=== PATIENT | female | born 1985 | race Caucasian/White ===

== ENCOUNTER 2016-11-05 15:35 | Emergency (ER) | payer MEDICAID, OTHER ==
--- NOTE | 2016-11-05 15:44 | ER Document Report ---
ED Medical Screen (RME) - General Stated Complaint: LEFT ANKLE PAIN Time seen by provider: 15:44 Mode of Arrival: Ambulatory Information source: Patient Notes: 31 yo female stepped off the dance floor le[place] before midnight and felt left ankle give out on her. tender left medial malleouols and plantar left heel over the fascia. non tender heel squeeze, achilles intact. TRAVEL OUTSIDE OF THE [place] IN LAST 30 DAYS: No - Related Data Allergies/Adverse Reactions: No Known Allergies Allergy (Verified 06/11/15 01:58) Past Medical History Neurological Medical History: Reports: Hx Migraine Past Surgical History: Reports: Hx Breast Surgery - Cyst - Immunizations Hx Diphtheria, Pertussis, Tetanus Vaccination: No - unknown
--- NOTE | 2016-11-05 17:43 | ER Document Report ---
ED Extremity Problem, Lower - General Chief Complaint: Ankle Pain Stated Complaint: LEFT ANKLE PAIN Time seen by provider: 17:38 Mode of Arrival: Ambulatory Information source: Patient Notes: 31-year-old female presents to ED for pain in her left ankle since Sunday. She states she was walking off the dance floor Sunday and her left ankle started hurting. She states it is very tender and painful to walk on since TRAVEL OUTSIDE OF THE [place] IN LAST 30 DAYS: No - HPI Patient complains to provider of: Pain. No: Injury, Swelling Location: Ankle, Foot Occurred: Other - Sunday Where: Public place Onset/Duration: Sudden, Intermittent Quality of pain: Achy, Sharp Severity: Moderate Pain Level: 4 Context: Other - Just walking Recent injury: No Associated symptoms: Painful ambulation Exacerbated by: Movement, Walking Relieved by: Elevation, Ice, Rest - Related Data Allergies/Adverse Reactions: No Known Allergies Allergy (Verified 11/05/16 15:48) Past Medical History - General Information source: Patient - Social History Smoking Status: Current Every Day Smoker Cigarette use (# per day): Yes - 2-3 cigarettes a day Chew tobacco use (# tins/day): No Smoking Education Provided: Yes - less than 1 minute Frequency of alcohol use: Rare Drug Abuse: None Occupation: inventory Lives with: Parents Family History: DM Patient has suicidal ideation: No Patient has homicidal ideation: No - Past Medical History Cardiac Medical History: Reports: None Pulmonary Medical History: Reports: None EENT Medical History: Reports: None Neurological Medical History: Reports: Hx Migraine Endocrine Medical History: Reports: None Renal/ Medical History: Reports: None Malignancy Medical History: Reports: None GI Medical History: Reports: None Musculoskeltal Medical History: Reports None Skin Medical History: Reports None Psychiatric Medical History: Reports: None Traumatic Medical History: Reports: None Infectious Medical History: Reports: None Past Surgical History: Reports: Hx Breast Surgery - Cyst - Immunizations Hx Diphtheria, Pertussis, Tetanus Vaccination: No - unknown Review of Systems - Review of Systems Constitutional: No symptoms reported EENT: No symptoms reported Cardiovascular: No symptoms reported Respiratory: No symptoms reported Gastrointestinal: No symptoms reported Genitourinary: No symptoms reported Female Genitourinary: No symptoms reported Musculoskeletal: Other - Left ankle pain. denies: Ankle swelling Skin: No symptoms reported Hematologic/Lymphatic: No symptoms reported Neurological/Psychological: No symptoms reported -: Yes All other systems reviewed and negative Physical Exam - Vital signs Vitals: Temp Pulse Resp BP Pulse Ox 98.0 F 70 18 127/71 H 99 11/05/16 15:48 11/05/16 15:48 11/05/16 15:48 11/05/16 15:48 11/05/16 15:48 Interpretation: Normal - General General appearance: Appears well, Alert - HEENT Head: Normocephalic, Atraumatic Eyes: Normal Pupils: PERRL - Respiratory Respiratory status: No respiratory distress Chest status: Nontender Breath sounds: Normal Chest palpation: Normal - Cardiovascular Rhythm: Regular Heart sounds: Normal auscultation Murmur: No - Abdominal Inspection: Normal Distension: No distension Bowel sounds: Normal Tenderness: Nontender Organomegaly: No organomegaly - Back Back: Normal, Nontender - Extremities General upper extremity: Normal inspection, Nontender, Normal color, Normal ROM , Normal temperature General lower extremity: Normal inspection, Normal color, Normal ROM, Normal temperature, Normal weight bearing. No: Sharri's sign Ankle: Tender - Medial malleolus and left heel Foot: Tender - Plantar surface of the heel left foot - Neurological Neuro grossly intact: Yes Cognition: Normal Orientation: AAOx4 [place] Coma Scale Eye Opening: Spontaneous [place] Coma Scale Verbal: Oriented [place] Coma Scale Motor: Obeys Commands [place] Coma Scale Total: 15 Speech: Normal Motor strength normal: LUE, RUE, LLE, RLE Sensory: Normal - Psychological Associated symptoms: Normal affect, Normal mood - Skin Skin Temperature: Warm Skin Moisture: Dry Skin Color: Normal Course - Re-evaluation Re-evalutation: 11/05/16 17:52 Discussed x-ray with patient Christopher wrap applied to left ankle and patient will be discharged home to follow-up with her primary doctor - Vital Signs Vital signs: Temp Pulse Resp BP Pulse Ox 98.0 F 70 18 127/71 H 99 11/05/16 15:48 11/05/16 15:48 11/05/16 15:48 11/05/16 15:48 11/05/16 15:48 - Diagnostic Test Radiology reviewed: Image reviewed, Reports reviewed Procedures - Immobilization Left Ankle Time completed: 17:53 Immobilizer type: Christopher wrap Performed by: PCT Post-Proc Neuro Vasc Exam: Normal Alignment checked and good: Yes Discharge - Discharge Clinical Impression: Left ankle pain Qualifiers: Chronicity: acute Qualified Code(s): M25.572 - Pain in left ankle and joints of left foot Condition: Stable Disposition: HOME, SELF-CARE Additional Instructions: You were seen today for left ankle's pain with no injury. You state you were just walking off the dance floor when the pain started. CHRISTOPHER WRAP: A compression dressing (christopher wrap) has been placed. This helps hold the area still. It limits swelling and internal bleeding. The wrap should be comfortably snug -- not tight. You should feel a sense of pressure, but not severe pain under the wrap. Unless the physician tells you otherwise, you can adjust the wrap for comfort. If the wrap causes symptoms suggesting it's too tight -- uncomfortable pressure, swelling or discoloration beyond the wrap, numbness, or severe pain - - you must loosen the wrap. If these symptoms don't resolve promptly, return for re-evaluation. ICE & ELEVATION: Apply ice packs frequently against the painful area. Many different schedules are recommended, such as "20 minutes on, 20 minutes off" or "one hour ice, two hours rest." If you need to work, you may need to go longer between ice treatments. You should plan to have the area ice packed AT LEAST one- fourth of the time. The ice should be applied over the wrap, tape, or splint, or over a layer of cloth -- not directly against the skin. Some ice bags have a built-in cloth and can be put directly on the skin. Your injured part should be elevated as much as possible over the next 48 hours. Try to keep the injury above the level of the heart. Avoid use of the injured area. Elevation and rest will decrease the swelling. USE OF [id number] IBUPROFEN: Ibuprofen (Advil, Nuprin, Medipren, Motrin IB) is a medication for fever and pain control. In addition, it has anti- inflammatory effects which may be beneficial, especially in the treatment of injuries. It's best to take ibuprofen with food. Persons with ulcer disease or allergy to aspirin should notify their physician of this before taking ibuprofen. Ibuprofen can be given every four to six hours, for a total of four doses daily. Age Pain or fever dose Antiinflammatory dose 6-8 yr 200 mg (1 tab) 200 mg (1 tab) 9-11 yr 200 mg (1 tab) 200-400 mg (1-2 tab) 11-14 yr 200-400 mg (1-2 tab) 400 mg (2 tab) 15-adult 400 mg (2 tab) 600 mg (3 tab) FOLLOW-UP CARE: If you have been referred to a physician for follow-up care, call the physician s office for an appointment as you were instructed or within the next two days. If you experience worsening or a significant change in your symptoms, notify the physician immediately or return to the Emergency Department at any time for re-evaluation. Prescriptions: Ibuprofen 800 mg PO Q8HP PRN #14 tablet PRN Reason: Forms: Elevated Blood Pressure, Smoking Cessation Education, Return to Work Referrals: TYRESE BURDICK MD [Primary Care Provider] - Follow up as needed DILMA AKHTAR MD [ACTIVE STAFF] - Follow up as needed
[2016-11-05 17:55] VITALS: BP 119/72
== END 2016-11-05 17:54 | disposition home or self-care (01) ==
LOC: ER 15:35
DX: M25.572 Pain in left ankle and joints of left foot (principal); F17.210 Nicotine dependence, cigarettes, uncomplicated; Z71.6 Tobacco abuse counseling
CPT/HCPCS: 99283

== ENCOUNTER 2016-11-24 11:27 | Emergency (ER) | payer MEDICAID ==
--- NOTE | 2016-11-24 11:40 | ER Document Report ---
ED Medical Screen (RME) - General Stated Complaint: ABDOMINAL PAIN/RIB PAIN Time seen by provider: 11:38 Mode of Arrival: Ambulatory Information source: Patient Notes: 31-year-old female presents to ED for abdominal and rib pain off and on for week. States today when she coughs she feels like she needs to vomit. States she's had a cough for week and a half. She states she smokes 4 or 5 cigarettes a day. Last menstrual period 11/06/2016 I have greeted and performed a rapid initial assessment of this patient. A comprehensive ED assessment and evaluation of the patient, analysis of test results and completion of medical decision making process will be conducted by an additional ED providers. TRAVEL OUTSIDE OF THE [place] IN LAST 30 DAYS: No - Related Data Allergies/Adverse Reactions: No Known Allergies Allergy (Verified 11/24/16 11:37) Past Medical History Neurological Medical History: Reports: Hx Migraine Past Surgical History: Reports: Hx Breast Surgery - Cyst - Immunizations Hx Diphtheria, Pertussis, Tetanus Vaccination: No - unknown
[2016-11-24] MEDS ORDERED: ONDANSETRON 4 MG TAB.RAPDIS PO ONE (11:41)
[2016-11-24 12:10] LABS: ABSOLUTE EOSINOPHILS # (AUTO) 0.2 10^3/uL (0.0-0.6); ABSOLUTE LYMPHOCYTES (AUTO) 1.9 10^3/uL (0.5-4.7); ABSOLUTE MONOCYTES (AUTO) 0.7 10^3/uL (0.1-1.4); BASOPHILS % (AUTO) 0.4 % (0-2); EOSINOPHILS % (AUTO) 1.5 % (0-6); HEMATOCRIT 40.2 % (36.0-47.0); HEMOGLOBIN 12.8 g/dL (12.0-15.5); HGB HCT DIFFERENCE -1.8; LYMPHOCYTES % (AUTO) 17.7 % (13-45); MEAN CORPUSCULAR HEMOGLOBIN 26.5 pg (27.0-33.4); MEAN CORPUSCULAR HGB CONC 31.8 g/dL (32.0-36.0); MEAN CORPUSCULAR VOLUME 83 fl (80-97); MONOCYTES % (AUTO) 6.5 % (3-13); RED BLOOD COUNT 4.82 10^6/uL (3.72-5.28); RED CELL DISTRIBUTION WIDTH 14.8 % (11.5-14.0); SEGMENTED NEUTROPHILS % (AUTO) 73.9 % (42-78); WHITE BLOOD COUNT 10.9 10^3/uL (4.0-10.5)
[2016-11-24 12:29] LABS: ALANINE AMINOTRANSFERASE 29 U/L (9-52); ALBUMIN 3.8 g/dL (3.5-5.0); ALKALINE PHOSPHATASE 64 U/L (38-126); ANION GAP 11 (5-19); ASPARTATE AMINO TRANSFERASE 17 U/L (14-36); BILIRUBIN,TOTAL 0.3 mg/dL (0.2-1.3); BLOOD UREA NITROGEN 9 mg/dL (7-20); CALCIUM 9.3 mg/dL (8.4-10.2); CARBON DIOXIDE 25 mmol/L (22-30); CHLORIDE 109 mmol/L (98-107); CREATINE KINASE 43 U/L (30-135); CREATININE RESULT 0.61 mg/dL (0.52-1.25); GLUCOSE 83 mg/dL (75-110); POTASSIUM 4.5 mmol/L (3.6-5.0); SODIUM 144.8 mmol/L (137-145); TOTAL PROTEIN 6.6 g/dL (6.3-8.2)
[2016-11-24 12:45] LABS: CREATINE KINASE MB < 0.22 ng/mL (<4.55); TROPONIN I < 0.012 ng/mL
[2016-11-24 14:22] LABS: ADD ON TESTING BLD IN LAB ACKNOWLEDGE
--- NOTE | 2016-11-24 14:42 | ER Document Report ---
ED GI/ - General Chief Complaint: Abdominal Pain Stated Complaint: ABDOMINAL PAIN/RIB PAIN Mode of Arrival: Ambulatory Information source: Patient Notes: Patient presents complaining of epigastric and right upper quadrant abdominal pain off and on for the past week that worsened today. Patient denies any fever or vomiting. Patient denies any urinary symptoms. Patient does state that pain worsens after eating. Patient additionally reports mild cough for the past few days. TRAVEL OUTSIDE OF THE [place] IN LAST 30 DAYS: No - HPI Patient complains to provider of: Abdominal pain, Other - Nausea. No: Vomiting Onset: Last week Timing/Duration: Waxing and waning Quality of pain: Achy Severity at maximum: Severe Pain Level: 1 Location: Epigastric, RUQ Vaginal bleeding (Compared to normal period): None Associated symptoms: Nausea. denies: Diarrhea, Dysuria, Fever, Loss of appetite , Urinary hesitancy, Urinary frequency, Urinary retention, Urinary urgency, Vaginal discharge, Vomiting Exacerbated by: Food Relieved by: Denies Similar symptoms previously: Yes Recently seen / treated by doctor: No - Related Data Allergies/Adverse Reactions: No Known Allergies Allergy (Verified 11/24/16 11:37) Past Medical History - General Information source: Patient Last Menstrual Period: 11/06/2016 - Social History Smoking Status: Current Every Day Smoker Chew tobacco use (# tins/day): No Frequency of alcohol use: Rare Drug Abuse: None Occupation: inventory Lives with: Family Family History: DM Patient has suicidal ideation: No Patient has homicidal ideation: No Pulmonary Medical History: Reports: Other - Allergies Neurological Medical History: Reports: Hx Migraine Renal/ Medical History: Denies: Hx Peritoneal Dialysis Past Surgical History: Reports: Hx Breast Surgery - Cyst - Immunizations Hx Diphtheria, Pertussis, Tetanus Vaccination: No - unknown Review of Systems - Review of Systems Constitutional: No symptoms reported. denies: Fever, Recent illness EENT: No symptoms reported Cardiovascular: No symptoms reported. denies: Chest pain Respiratory: Cough. denies: Short of breath Gastrointestinal: Abdominal pain, Nausea. denies: Diarrhea, Vomiting, Poor appetite Genitourinary: No symptoms reported. denies: Dysuria, Flank pain Female Genitourinary: No symptoms reported Musculoskeletal: No symptoms reported. denies: Back pain Skin: No symptoms reported Hematologic/Lymphatic: No symptoms reported Neurological/Psychological: No symptoms reported. denies: Headaches Physical Exam - Vital signs Vitals: Temp Pulse Resp BP Pulse Ox 97.8 F 56 L 18 129/74 H 99 11/24/16 11:34 11/24/16 11:34 11/24/16 11:34 11/24/16 11:34 11/24/16 11:34 - General General appearance: Appears well, Alert In distress: None Notes: PHYSICAL EXAMINATION: GENERAL: Well-appearing and in no acute distress. HEAD: Atraumatic, normocephalic. EYES: sclera anicteric, conjunctiva are normal. ENT: nares patent. Moist mucous membranes. NECK: Normal range of motion, supple without lymphadenopathy LUNGS: CTAB and equal. No wheezes rales or rhonchi. HEART: Regular rate and rhythm without murmurs ABDOMEN: Soft, mild epigastric, right upper quadrant tenderness, normal bowel sounds, no guarding. EXTREMITIES: Normal range of motion, no pitting edema. No cyanosis. BACK: No midline tenderness, no step-off or deformity. No CVA tenderness NEUROLOGICAL: Cranial nerves grossly intact. Normal speech. Normal gait. PSYCH: Normal mood, normal affect. SKIN: Warm, Dry, normal turgor, no rashes or lesions noted Course - Re-evaluation Re-evalutation: 11/24/16 14:[address] Serrano regarding patient presentation and exam findings. Does recommend ultrasound imaging at this time. 11/24/16 16:56 Reviewed ultrasound report findings with Dr. Serrano, does not suspect that patient has acute cholecystitis at this time. Patient remains pain-free and has not been medicated for pain during her ER stay. Does recommend consultation with surgeon to guarantee outpatient follow-up Consulted with Dr Lehman, states that pt can be offered admission with plan to go to the OR possibly tonight or tomorrow; or patient can be offered outpatient follow-up with the clinic, having patient call the office on Sunday morning to set up an appointment time. 11/24/16 16:57 Discussed possible treatment options with patient, patient declines admission at this time, stating that it would be better for her schedule if she could follow-up on Sunday as an outpatient. Discussed worsening signs or symptoms that patient should return immediately for. Patient verbalized understanding and agrees plan of care. - Vital Signs Vital signs: Temp Pulse Resp BP Pulse Ox 97.9 F 61 20 115/71 61 L 11/24/16 17:14 11/24/16 17:14 11/24/16 17:14 11/24/16 17:14 11/24/16 17:14 - Laboratory Result Diagrams: 11/24/16 11:57 11/24/16 11:57 Laboratory results interpreted by me: 11/24/16 11/24/16 11:57 11:57 WBC 10.9 H MCH 26.5 L MCHC 31.8 L RDW 14.8 H Chloride 109 H 11/24/16 16:58 Labs- Entire Visit 11/24/16 11/24/16 11/24/16 11:57 11:57 11:57 WBC 10.9 H RBC 4.82 Hgb 12.8 Hct 40.2 MCV 83 MCH 26.5 L MCHC 31.8 L RDW 14.8 H Plt Count 279 Seg Neutrophils % 73.9 Lymphocytes % 17.7 Monocytes % 6.5 Eosinophils % 1.5 Basophils % 0.4 Absolute Neutrophils 8.0 Absolute Lymphocytes 1.9 Absolute Monocytes 0.7 Absolute Eosinophils 0.2 Absolute Basophils 0.0 Sodium 144.8 Potassium 4.5 Chloride 109 H Carbon Dioxide 25 Anion Gap 11 BUN 9 Creatinine 0.61 Est GFR ( Amer) > 60 Est GFR (Non-Af Amer) > 60 Glucose 83 Calcium 9.3 Total Bilirubin 0.3 Direct Bilirubin 0.0 AST 17 ALT 29 Alkaline Phosphatase 64 Creatine Kinase 43 CK-MB (CK-2) < 0.22 Troponin I < 0.012 Total Protein 6.6 Albumin 3.8 Lipase 11/24/16 11:57 WBC RBC Hgb Hct MCV MCH MCHC RDW Plt Count Seg Neutrophils % Lymphocytes % Monocytes % Eosinophils % Basophils % Absolute Neutrophils Absolute Lymphocytes Absolute Monocytes Absolute Eosinophils Absolute Basophils Sodium Potassium Chloride Carbon Dioxide Anion Gap BUN Creatinine Est GFR ( Amer) Est GFR (Non-Af Amer) Glucose Calcium Total Bilirubin Direct Bilirubin AST ALT Alkaline Phosphatase Creatine Kinase CK-MB (CK-2) Troponin I Total Protein Albumin Lipase 53.8 11/24/16 18:45 - Diagnostic Test Radiology reviewed: Reports reviewed Discharge - Discharge Clinical Impression: Gall bladder disease, Nausea Abdominal pain Qualifiers: Abdominal location: unspecified location Qualified Code(s): R10.9 - Unspecified abdominal pain Condition: Stable Disposition: HOME, SELF-CARE Instructions: Gallbladder Disease ([facility]), Antinausea Medication ([facility]), Low-Fat Diet ([facility]) Additional Instructions: Return immediately for any new or worsening symptoms, increased pain, fever, vomiting, yellowing of the skin or eyes or any concerning symptoms Followup with your primary care provider, call Sunday for an appointment time Follow-up with the outpatient surgical clinic, called her office on Sunday morning for an appointment time. Prescriptions: Ondansetron HCl [Zofran 4 mg Tablet] 1 - 2 tab PO Q6 PRN #15 tablet PRN Reason: Forms: Return to Work Referrals: [facility] [Provider Group] - 11/27/16 MITZI BURDICK NP [Primary Care Provider] - 11/27/16
[2016-11-24 14:45] LABS: LIPASE 53.8 U/L (23-300)
[2016-11-24 17:16] VITALS: BP 115/71
== END 2016-11-24 17:16 | disposition home or self-care (01) ==
LOC: ER 11:27
DX: K82.9 Disease of gallbladder, unspecified (principal); R10.13 Epigastric pain; R10.11 Right upper quadrant pain; R05 Cough; R11.0 Nausea; F17.200 Nicotine dependence, unspecified, uncomplicated
CPT/HCPCS: 99284; 36415; 82553; 82550; 83690; 85025; 80053; 84484; 71020; 76705; S0119

== ENCOUNTER 2016-11-27 02:39 | Observation (INO) | payer MEDICAID ==
[2016-11-27] MEDS ORDERED: MORPHINE SULFATE 10 MG/ML INJ IV ONE (03:23)
[2016-11-27] MEDS ORDERED: NORMAL SALINE 1000 ML 1,000 ML IV PRN (03:23)
[2016-11-27] MEDS ORDERED: ONDANSETRON HCL INJ/PF 4 MG/2 ML SDV IV ONE (03:23)
--- NOTE | 2016-11-27 03:34 | ER Document Report ---
ED GI/ - General Time seen by provider: 03:27 Mode of Arrival: Ambulatory Information source: Patient TRAVEL OUTSIDE OF THE [place] IN LAST 30 DAYS: No - HPI Patient complains to provider of: Abdominal pain Onset: Just prior to arrival Timing/Duration: Sudden Quality of pain: Sharp, Stabbing Severity at maximum: Moderate Severity in ED: Moderate Pain Level: 4 Location: RUQ Associated symptoms: Nausea Exacerbated by: Denies Relieved by: Denies Similar symptoms previously: Yes Recently seen / treated by doctor: Yes <KATHERINE DAILEY - Last Filed: 11/27/16 06:10> <ALANA ZEPEDA - Last Filed: 11/27/16 06:45> - General Chief Complaint: Abdominal Pain Stated Complaint: UPPER ABDOMINAL PAIN - HPI Notes: 11/27/16 03:28 Patient is a 31-year-old female presenting to the emergency room complaining of right upper quadrant pain that is sharp and stabbing in nature and woke her from sleep 2 this evening, she reports nausea associated with the pain but no fever and no vomiting, she was seen in the emergency room on 11/24 and diagnosed with gallstones, no history of any abdominal surgeries previously, her last meal was around 8:45 PM and consisted of some vegetables (KATHERINE DAILEY) - Related Data Allergies/Adverse Reactions: No Known Allergies Allergy (Verified 11/24/16 11:37) Past Medical History - General Information source: Patient - Social History Smoking Status: Current Every Day Smoker Chew tobacco use (# tins/day): No Frequency of alcohol use: Rare Drug Abuse: None Family History: DM Patient has suicidal ideation: No Patient has homicidal ideation: No Neurological Medical History: Reports: Hx Migraine Renal/ Medical History: Denies: Hx Peritoneal Dialysis Past Surgical History: Reports: Hx Breast Surgery - Cyst - Immunizations Hx Diphtheria, Pertussis, Tetanus Vaccination: No - unknown <KATHERINE DAILEY - Last Filed: 11/27/16 06:10> Review of Systems - Review of Systems Constitutional: No symptoms reported EENT: No symptoms reported Cardiovascular: No symptoms reported Respiratory: No symptoms reported Gastrointestinal: Abdominal pain, Nausea Genitourinary: No symptoms reported Female Genitourinary: No symptoms reported Musculoskeletal: No symptoms reported Skin: No symptoms reported Hematologic/Lymphatic: No symptoms reported Neurological/Psychological: No symptoms reported -: Yes All other systems reviewed and negative <KATHERINE DAILEY - Last Filed: 11/27/16 06:10> Physical Exam - Vital signs Interpretation: Normal - General General appearance: Appears well, Alert - HEENT Head: Normocephalic, Atraumatic Eyes: Normal Pupils: PERRL - Respiratory Respiratory status: No respiratory distress Chest status: Nontender Breath sounds: Normal Chest palpation: Normal - Cardiovascular Rhythm: Regular Heart sounds: Normal auscultation Murmur: No - Abdominal Inspection: Normal Distension: No distension Bowel sounds: Normal Tenderness: Tender - Right upper quadrant Organomegaly: No organomegaly - Back Back: Normal, Nontender - Extremities General upper extremity: Normal inspection, Nontender, Normal color, Normal ROM , Normal temperature General lower extremity: Normal inspection, Nontender, Normal color, Normal ROM , Normal temperature, Normal weight bearing. No: Sharri's sign - Neurological Neuro grossly intact: Yes Cognition: Normal Orientation: AAOx4 [place] Coma Scale Eye Opening: Spontaneous [place] Coma Scale Verbal: Oriented [place] Coma Scale Motor: Obeys Commands [place] Coma Scale Total: 15 Speech: Normal Motor strength normal: LUE, RUE, LLE, RLE Sensory: Normal - Psychological Associated symptoms: Normal affect, Normal mood - Skin Skin Temperature: Warm Skin Moisture: Dry Skin Color: Normal <KATHERINE DAILEY - Last Filed: 11/27/16 06:10> Course - Laboratory Result Diagrams: 11/27/16 04:00 11/27/16 04:00 - Consults Dr Gilliland Time consulted: 05:49 Consulted provider: will come to ER <KATHERINE DAILEY - Last Filed: 11/27/16 06:10> - Laboratory Result Diagrams: 11/27/16 04:00 11/27/16 04:00 <ALANA ZEPEDA - Last Filed: 11/27/16 06:45> - Re-evaluation Re-evalutation: 11/27/16 05:26 I reviewed patient's ultrasound from 3 days ago when she was seen which reveals gallstones and gallbladder wall thickening thought to be more chronic in nature , at that point in time she was evaluated by Dr. Gerber and they discussed admitting patient for surgery versus following up as an outpatient, initially patient chose to be followed up as an outpatient, however this evening she states that the pain is so bad that she would prefer to be admitted and have her gallbladder removed I placed a call to the on-call surgeon, Dr. Gilliland, who will come to the emergency room to evaluate the patient 11/27/16 06:10 Patient is awaiting evaluation by surgeon for further disposition instructions, patient was discussed with Dr. Zepeda who will ensure that patient is either admitted or discharged appropriately (KATHERINE DAILEY) 11/27/16 06:45 Surgeon at bedside will admit the patient for further observation. (ALANA ZEPEDA) - Vital Signs Vital signs: Temp Pulse Resp BP Pulse Ox 97.8 F 68 18 127/74 H 100 11/27/16 02:42 11/27/16 02:42 11/27/16 02:42 11/27/16 02:42 11/27/16 02:42 (KATHERINE DAILEY) (ALANA ZEPEDA) - Laboratory Laboratory results interpreted by me: 11/27/16 11/27/16 11/27/16 04:00 04:00 04:00 MCH 26.9 L RDW 15.2 H Chloride 114 H Carbon Dioxide 18 L Albumin 3.1 L Urine Protein 30 H Ur Leukocyte Esterase TRACE H (ALANA ZEPEDA) - Consults Dr Gilliland Reason for consultation: 11/27/16 05:49 Right upper quadrant pain, gallstones (KATHERINE DAILEY) Discharge <KATHERINE DAILEY - Last Filed: 11/27/16 06:10> - Discharge Admitting Provider: Surgicalist - [facility] Unit Admitted: Surgical Floor <ALANA ZEPEDA - Last Filed: 11/27/16 06:45> - Discharge Clinical Impression: Gall bladder disease Abdominal pain Qualifiers: Abdominal location: unspecified location Qualified Code(s): R10.9 - Unspecified abdominal pain Condition: Good Disposition: ADMITTED OBSERVATION Referrals: MITZI BURDICK LICENSED AUDIOLOGIST [Primary Care Provider] - Follow up as needed
[2016-11-27 04:19] LABS: ABSOLUTE BASOPHILS # (AUTO) 0.1 10^3/uL (0.0-0.2); ABSOLUTE EOSINOPHILS # (AUTO) 0.2 10^3/uL (0.0-0.6); ABSOLUTE LYMPHOCYTES (AUTO) 2.1 10^3/uL (0.5-4.7); ABSOLUTE MONOCYTES (AUTO) 0.8 10^3/uL (0.1-1.4); ABSOLUTE NEUT (AUTO) 6.6 10^3/uL (1.7-8.2); BASOPHILS % (AUTO) 0.6 % (0-2); EOSINOPHILS % (AUTO) 1.7 % (0-6); HEMATOCRIT 37.4 % (36.0-47.0); HEMOGLOBIN 12.1 g/dL (12.0-15.5); HGB HCT DIFFERENCE -1.1; LYMPHOCYTES % (AUTO) 21.5 % (13-45); MEAN CORPUSCULAR HEMOGLOBIN 26.9 pg (27.0-33.4); MEAN CORPUSCULAR HGB CONC 32.2 g/dL (32.0-36.0); MEAN CORPUSCULAR VOLUME 83 fl (80-97); MONOCYTES % (AUTO) 7.7 % (3-13); RED BLOOD COUNT 4.49 10^6/uL (3.72-5.28); RED CELL DISTRIBUTION WIDTH 15.2 % (11.5-14.0); SEGMENTED NEUTROPHILS % (AUTO) 68.5 % (42-78); WHITE BLOOD COUNT 9.7 10^3/uL (4.0-10.5)
[2016-11-27 04:35] LABS: ALANINE AMINOTRANSFERASE 29 U/L (9-52); ALBUMIN 3.1 g/dL (3.5-5.0); ALKALINE PHOSPHATASE 64 U/L (38-126); ANION GAP 10 (5-19); ASPARTATE AMINO TRANSFERASE 22 U/L (14-36); BILIRUBIN,TOTAL 0.3 mg/dL (0.2-1.3); BLOOD UREA NITROGEN 10 mg/dL (7-20); CALCIUM 8.9 mg/dL (8.4-10.2); CARBON DIOXIDE 18 mmol/L (22-30); CHLORIDE 114 mmol/L (98-107); CREATININE RESULT 0.61 mg/dL (0.52-1.25); GLUCOSE 103 mg/dL (75-110); LIPASE 54.1 U/L (23-300); POTASSIUM 4.7 mmol/L (3.6-5.0); SODIUM 141.5 mmol/L (137-145); TOTAL PROTEIN 6.5 g/dL (6.3-8.2)
[2016-11-27 04:52] LABS: AMORPHOUS SEDIMENT,URINE 1+ /HPF; APPEARANCE,URINE TURBID; BILIRUBIN,URINE NEGATIVE (NEGATIVE); GLUCOSE, URINE NEGATIVE (NEGATIVE); KETONES,URINE NEGATIVE (NEGATIVE); LEUKOCYTE ESTERASE,URINE TRACE (NEGATIVE); NITRITE,URINE NEGATIVE (NEGATIVE); PROTEIN,URINE 30 mg/dL (NEGATIVE); URINE SPECIFIC GRAVITY 1.015; UROBILINOGEN,URINE NEGATIVE mg/dL (<2.0)
--- NOTE | 2016-11-27 08:28 | PDOC PROGRESS REPORT ---
Subjective Progress Note for:: 11/27/16 Subjective:: Patient complaining of right upper quadrant pain reduced compared to this morning. Physical Exam Vital Signs: Temp Pulse Resp BP Pulse Ox 98.5 F 52 L 14 103/61 100 11/27/16 06:46 11/27/16 06:46 11/27/16 06:46 11/27/16 06:46 11/27/16 06:46 Intake & Output 11/26/16 11/27/16 11/28/16 06:59 06:59 06:59 Weight 104.1 kg General appearance: PRESENT: mild distress Eye exam: PRESENT: EOMI GI/Abdominal exam: PRESENT: other - Abdomen is soft, minimally tender in the right upper quadrant. No organomegaly no peritoneal signs. Assessment & Plan - Diagnosis (1) Gall bladder disease Is this a current diagnosis for this admission?: YesPlan: 1. Patient has chronic cholecystitis with cholelithiasis. She deserves interval laparoscopic, possible open cholecystectomy. The patient has been admitted to the surgical service. I have explained the plan to the patient, as well as a thorough explanation of the risks benefits and alternatives including bleeding, infection, bile duct injury and need for additional surgery. I believe the patient understands and agrees to proceed. 2. We will keep patient nothing by mouth complete her paperwork. Anticipate her being discharged home from the hospital within 24 hours.
[2016-11-27] MEDS ORDERED: ONDANSETRON HCL INJ/PF 4 MG/2 ML SDV IV PRN ×2 (08:29→10:55)
[2016-11-27] MEDS ORDERED: BUPIVACAINE HCL 0.25 % INJ/PF (2.5 MG/1 ML) 30 ML VIAL ONE (08:56)
[2016-11-27] MEDS ORDERED: LEVOFLOXACIN 750 MG/D5W RTU 750 MG/150 ML RTUPB IV ONE (09:00)
[2016-11-27] MEDS ORDERED: PROMETHAZINE HCL INJ 25 MG/1 ML VIAL IV PRN ×2 (10:55)
[2016-11-27] MEDS ORDERED: MEPERIDINE HCL/PF INJ 25 MG/1 ML DISP.SYRIN IV PRN (10:55)
[2016-11-27] MEDS ORDERED: FENTANYL CITRATE INJ/PF 100 MCG/2 ML AMPUL IV PRN ×3 (10:55)
[2016-11-27] MEDS ORDERED: MORPHINE SULFATE 10 MG/ML INJ IV PRN (10:55)
[2016-11-27] MEDS ORDERED: DIPHENHYDRAMINE HCL 50 MG/ML VIAL IV PRN (10:55)
[2016-11-27] MEDS ORDERED: OXYCODONE-ACETAMINOPHEN 5-325 MG TABLET PO PRN ×2 (10:55)
--- NOTE | 2016-11-27 12:19 | Operative Report ---
Operative Report DATE OF SURGERY: 11/27/16 PREOPERATIVE DIAGNOSIS: Acute cholecystitis and cholelithiasis POSTOPERATIVE DIAGNOSIS: Same OPERATION: Laparoscopic cholecystectomy SURGEON: RYAN FELDMAN ANESTHESIA: GA TISSUE REMOVED OR ALTERED: Gallstones, gallbladder COMPLICATIONS: None ESTIMATED BLOOD LOSS: 15 mL INTRAOPERATIVE FINDINGS: See below PROCEDURE: After obtaining informed consent, the patient was taken to the operating room. General Anesthesia was induced; the arms were extended, and the abdomen was exposed, and prepped and draped in a sterile fashion. Instrumentation was set up for laparoscopic cholecystectomy. Surgical plan and surgical timeout were conducted. A vertical incision was made above the umbilicus, and a verres needle was inserted uneventfully into the peritoneal cavity. Pneumoperitoneum was established. The verres needle was removed and a 5 mm trocar was inserted and a 5 mm flexible laparoscope was inserted. Visualization of the peritoneal cavity confirmed safe uneventful entry. Under direct visualization 3 additional 5 mm ports were established, one in the subxiphoid position and second in the subcostal position. There was marked edema and swelling of the gallbladder consistent with acute cholecystitis. Using a laparoscopic trocar, approximately 80 mL of bile was aspirated from the gallbladder. A grasper was placed on the fundus of the gallbladder and the gallbladder is elevated over the right surface of the liver; a second grasper was used to grasp the infundibulum of the gallbladder. The neck of the gallbladder and junction with the cystic duct was dissected out. There were several nodes of Calot I: There was a moderate amount of neovascularity the the area behind the cystic duct area; therefore I felt that a top down approach was appropriate. Graspers were repositioned, and the gallbladder was taken off of the liver bed from the top down using electrocautery. Eventually the gallbladder suspended solely by the cystic duct and the cystic artery. His were taken. Cystic artery was clipped twice proximally once distally and divided with scissors. The gallbladder was now suspended solely by the cystic duct. We now milked the cystic duct of any possible stones, clipped the cystic duct approximately 3 times once distally and divided with scissors. The gallbladder was now removed from the undersurface of the liver using hook cautery dissection. Graspers were repositioned and the gallbladder was removed uneventfully from the abdominal cavity through the super umbilical port site incision similarly extending the fascial by a few centimeters.. The specimen was examined, then passed off to pathology for permanent analysis. We returned to the peritoneal cavity check for bleeding, and evidence of bile leak, and there was none. We Confirmed satisfactory placement of clips on cystic duct and cystic artery were secured . At this point we felt the operation was complete. Fascial defect above the umbilicus was closed with multiple interrupted 0 [id number] Vicryl sutures. No drains were applied; The subcutaneous tissue was then anesthetized with quarter percent Marcaine Sponge and needle counts are correct. All ports removed under direct visualization pneumoperitoneum evacuated, and 5 mm port wounds closed with 3-0 Vicryl suture, benzoin and Steri-Strips. The patient was extubated, and taken to the recovery room in stable condition.
[2016-11-27] MEDS: FENTANYL CITRATE INJ/PF 100 MCG/2 ML AMPUL ONE ×2 (12:20→12:25)
[2016-11-27] MEDS ORDERED: LIDOCAINE 2% INJ-PF (20 MG/ML) 10 ML AMPUL ONE (12:50)
[2016-11-27] MEDS ORDERED: METOCLOPRAMIDE HCL INJ/PF 10 MG/2 ML SDV ONE (12:50)
[2016-11-27] MEDS ORDERED: DEXAMETHASONE SOD PHOSPHATE INJ 4 MG/1 ML VIAL ONE (12:50)
[2016-11-27] MEDS ORDERED: GLYCOPYRROLATE INJ 0.4 MG/2 ML VIAL ONE (12:50)
[2016-11-27] MEDS ORDERED: SUCCINYLCHOLINE CHLORIDE INJ 200 MG/10 ML VIAL ONE (12:50)
[2016-11-27] MEDS ORDERED: ONDANSETRON HCL INJ/PF 4 MG/2 ML SDV ONE (12:50)
[2016-11-27] MEDS ORDERED: VECURONIUM BROMIDE INJ 10 MG VIAL IV ONE (12:50)
--- NOTE | 2016-11-27 13:04 | HISTORY AND PHYSICAL E ---
History and Physical NAME: JANET LOCKETT : 1985 AGE: 31Y ADMITTED: 11/27/2016 ROOM: ED17 HISTORY OF PRESENT ILLNESS: The patient is a 31-year-old female patient coming back for the second time to the emergency room with a history of abdominal pain with nausea. The patient was here 3 days ago with gallbladder issue. She wanted to go home and follow up as an outpatient midnight tonight patient started having significant abdominal pain, could not tolerate it, and came back to the emergency room. Her last ultrasound of the gallbladder revealed gallstones with the gallbladder wall about 6 mm. Presently, patient complains of pain in the right upper quadrant area with nausea. PAST MEDICAL PROBLEMS: None. PAST SURGICAL HISTORY: Had wisdom tooth removed. There are no other medical issues. PERSONAL HISTORY: She is a smoker, but no alcohol abuse or any other issues. REVIEW OF SYSTEMS: As per examination, negative except for abdominal pain and occasional smoking. PHYSICAL EXAMINATION: GENERAL: He appears to be in some discomfort. No icterus. HEAD/NECK: No lymphadenopathy. No masses. RESPIRATORY: Both lungs are clear to auscultation. CARDIOVASCULAR: Both heart sounds regular. No murmurs or gallops. ABDOMEN: She has a soft abdomen, tender in the right upper quadrant area. No palpable masses. No palpable hernia. EXTREMITIES: Warm, well perfused. is normal. White count is also normal. Ultrasound review, which was done a few days ago, showed multiple gallstones with thickened gallbladder wall. IMPRESSION: Cholelithiasis with cholecystitis with pain. PLAN: Admit for pain management and rehydration. Based on the , possibly cholecystectomy today by on-call surgeon. If the pain gets better at this point, but I will certainly admit her and plan for a cholecystectomy because of her continued pain and return to the emergency room. DICTATING PHYSICIAN: CHASTITY HENDRIX M.D. [id number] PHY#: [id number] ID: [id number] JOB#: [id number] ACCT: [id number] cc: >
[2016-11-27] MEDS: POTASSI CL 20 MEQ/D5-1/2NS 1L 1000 ML IV PRN (18:01)
[2016-11-27] MEDS: HYDROMORPHONE HCL INJ/PF 2 MG/ML AMPULE IV PRN ×2 (18:03→22:48)
[2016-11-27] MEDS ORDERED: TOPIRAMATE 100 MG TABLET PO SCH (22:00)
[2016-11-28] MEDS: POTASSI CL 20 MEQ/D5-1/2NS 1L 1000 ML IV PRN (06:57)
[2016-11-28] MEDS ORDERED: HYDROCODONE/ACETAMINOPHEN 5-325 MG TABLET PO PRN (08:36)
[2016-11-28] MEDS ORDERED: LORATADINE 10 MG TABLET PO SCH (10:00)
[2016-11-28] MEDS ORDERED: LEVOFLOXACIN 750 MG/D5W RTU 750 MG/150 ML RTUPB IV SCH (10:00)
[2016-11-28] MEDS ORDERED: OXYCODONE-ACETAMINOPHEN 5-325 MG TABLET PO PRN (14:28)
--- NOTE | 2016-11-28 18:31 | PDOC DISCHARGE SUMMARY ---
General - Admit/Disc Date/PCP Admission Date/Primary Care Provider: 11/27/16 06:49 MITZI BURDICK NP Discharge Date: 11/28/16 - Discharge Diagnosis (1) Cholelithiasis with acute on chronic cholecystitis Is this a current diagnosis for this admission?: Yes - Additional Information Resuscitation Status: Full Code Home Medications: Fexofenadine HCl [Xenia] 180 mg PO DAILY 11/27/16 Norethindrone [Nor-Q-D] 0.35 mg PO DAILY 11/27/16 Topiramate [Topamax] 200 mg PO DAILY 11/27/16 History of Present Illness History of Present Illness: JANET LOCKETT is a 31 year old female who was admitted on 11/27/2016 with right upper quadrant pain. Exam and Imaging revealed cholecystitis. She is taken to surgery on 11/27/2016 were a laparoscopic Cholecystectomy was performed. Postoperatively the patient's diet was gradually advanced. Her pain was controlled with Percocet. She was ambulating, voiding, passing flatus and tolerating a diet. She was discharged home on 11/28/2016. Pathology report: Gallbladder, acute on chronic cholecystitis with cholelithiasis. Hospital Course Hospital Course: JANET LOCKETT is a 31 year old female who was admitted on 11/27/2016 with right upper quadrant pain. Exam and Imaging revealed cholecystitis. She is taken to surgery on 11/27/2016 were a laparoscopic Cholecystectomy was performed. Postoperatively the patient's diet was gradually advanced. Her pain was controlled with Percocet. She was ambulating, voiding, passing flatus and tolerating a diet. She was discharged home on 11/28/2016. Pathology report: Gallbladder, acute on chronic cholecystitis with cholelithiasis. Physical Exam Vital Signs: Temp Pulse Resp BP Pulse Ox 97.5 F 75 16 111/73 100 11/28/16 15:08 11/28/16 15:08 11/28/16 15:08 11/28/16 15:08 11/28/16 15:08 Intake & Output 11/27/16 11/28/16 11/29/16 06:59 06:59 06:59 Intake Total 4261 1687 Output Total 1020 Balance 3241 1687 Weight 104.1 kg 108.2 kg General appearance: PRESENT: no acute distress Head exam: PRESENT: normocephalic Respiratory exam: PRESENT: unlabored GI/Abdominal exam: PRESENT: normal bowel sounds, soft, tenderness - Appropriately tender at umbilical incision. Incisions clean dry and intact with Steri-Strips.. ABSENT: distended, guarding, rebound Neurological exam: PRESENT: alert, oriented to situation Skin exam: ABSENT: jaundice Plan Discharge Plan: Discharge home. Walk frequently. Continue deep breathing and coughing. No lifting over 10 pounds for 2 weeks. Shower daily starting tomorrow. Remove Steri-Strips in [address] while on narcotics. Take Colace/generic stool softener 200 milligrams twice a day while on stool softener; adjusted keep stool soft but avoid diarrhea; taper off as you wean off narcotics. Follow -up in surgery clinic in 10-14 days with MANINDER [place].
[2016-11-28 18:56] VITALS: BP 104/57
[2016-11-28] MEDS ORDERED: DOCUSATE SODIUM 100 MG CAPSULE PO ONE (20:00)
[2016-11-28] MEDS ORDERED: DOCUSATE SODIUM 100 MG CAPSULE PO SCH (22:00)
== END 2016-11-28 20:14 | disposition home or self-care (01) ==
LOC: ER 02:39 → UNDOADMOB 06:49 → EH 06:49 → 4N 06:49 → EH 13:08
PROC: 0FT44ZZ Resection of Gallbladder, Percutaneous Endoscopic Approach (ICD-10-PCS; principal; 2016-11-27 10:00)
DX: K80.12 Calculus of gallbladder with acute and chronic cholecystitis without obstruction (principal); F17.210 Nicotine dependence, cigarettes, uncomplicated; G43.909 Migraine, unspecified, not intractable, without status migrainosus; Z83.3 Family history of diabetes mellitus; Z79.899 Other long term (current) drug therapy
CPT/HCPCS: 99285; 96361; 96374; 96375; 36415; 87086; 83690; 84703; 85025; 80053; 81001; 88304 ×2; 47562; G0378 ×3; J1100; J3490 ×5; J3010; J2765; J2270; J1170; J3480 ×2; J0330; J2405; S0020; J7030; J1956 ×2; 790

== ENCOUNTER 2017-01-17 17:44 | Emergency (ER) | payer MEDICAID ==
[2017-01-17 17:50] VITALS: BP 123/66
--- NOTE | 2017-01-17 17:53 | ER Document Report ---
ED Medical Screen (RME) - General Stated Complaint: COUGH,CHEST TIGHTNESS Notes: 31 yo female c/o cough, chest tightness x 1week. had flu symptoms last week. no chronic illness. RR nonlabored. Sat 98% TRAVEL OUTSIDE OF THE [place] IN LAST 30 DAYS: No - Related Data Allergies/Adverse Reactions: No Known Allergies Allergy (Verified 11/27/16 06:53) Past Medical History Neurological Medical History: Reports: Hx Migraine Renal/ Medical History: Denies: Hx Peritoneal Dialysis Past Surgical History: Reports: Hx Breast Surgery - Cyst - Immunizations Hx Diphtheria, Pertussis, Tetanus Vaccination: No - unknown Physical Exam - Vital signs Vitals: Temp Pulse Resp BP Pulse Ox 97.6 F 71 18 123/66 98 01/17/17 17:49 01/17/17 17:49 01/17/17 17:49 01/17/17 17:49 01/17/17 17:49 Course - Vital Signs Vital signs: Temp Pulse Resp BP Pulse Ox 97.6 F 71 18 123/66 98 01/17/17 17:49 01/17/17 17:49 01/17/17 17:49 01/17/17 17:49 01/17/17 17:49
--- NOTE | 2017-01-17 19:21 | ER Document Report ---
ED Respiratory Problem - General Chief Complaint: Cough Stated Complaint: COUGH,CHEST TIGHTNESS Notes: The patient is a 31-year-old female, current smoker, presents with 3 weeks of dry cough, worsening over the past day. Last week she had fevers and body aches with the cough, but the fevers and body aches have resolved. She tried [id number] cough medicine without much relief. She denies chest pain at rest, leg swelling, hemoptysis, recent travel, nausea, vomiting or abdominal pain. TRAVEL OUTSIDE OF THE [place] IN LAST 30 DAYS: No - Related Data Allergies/Adverse Reactions: No Known Allergies Allergy (Verified 11/27/16 06:53) Past Medical History - General Information source: Patient - Social History Smoking Status: Current Every Day Smoker Frequency of alcohol use: Occasional Drug Abuse: None Family History: DM Patient has suicidal ideation: No Patient has homicidal ideation: No Neurological Medical History: Reports: Hx Migraine Renal/ Medical History: Denies: Hx Peritoneal Dialysis Past Surgical History: Reports: Hx Breast Surgery - Cyst - Immunizations Hx Diphtheria, Pertussis, Tetanus Vaccination: No - unknown Review of Systems - Review of Systems Notes: REVIEW OF SYSTEMS: CONSTITUTIONAL: -fevers, -chills EENT: -eye pain, -difficulty swallowing, +nasal congestion CARDIOVASCULAR:-chest pain, -syncope. RESPIRATORY: +cough, -SOB GASTROINTESTINAL: -abdominal pain, - nausea, -vomiting, -diarrhea GENITOURINARY: -dysuria, -hematuria MUSCULOSKELETAL: -back pain, -neck pain SKIN: -rash or skin lesions. HEMATOLOGIC: -easy bruising or bleeding. LYMPHATIC: -swollen, enlarged glands. NEUROLOGICAL: -altered mental status or loss of consciousness, -headache, - neurologic symptoms PSYCHIATRIC: -anxiety, -depression. ALL OTHER SYSTEMS REVIEWED AND NEGATIVE. Physical Exam - Vital signs Vitals: Temp Pulse Resp BP Pulse Ox 97.6 F 71 18 123/66 98 01/17/17 17:49 01/17/17 17:49 01/17/17 17:49 01/17/17 17:49 01/17/17 17:49 - Notes Notes: PHYSICAL EXAMINATION: GENERAL: Well-appearing, well-nourished and in no acute distress. HEAD: Atraumatic, normocephalic. EYES: Pupils equal round and reactive to light, extraocular movements intact, sclera anicteric, conjunctiva are normal. ENT: nares patent, oropharynx clear without exudates. Moist mucous membranes. NECK: Normal range of motion, supple without lymphadenopathy LUNGS: Mild end expiratory wheeze, coarse breath sounds, no respiratory distress. HEART: Regular rate and rhythm without murmurs ABDOMEN: Soft, nontender, normoactive bowel sounds. No guarding, no rebound. No masses appreciated. EXTREMITIES: Normal range of motion, no pitting or edema. No cyanosis. NEUROLOGICAL: Cranial nerves grossly intact. Normal speech, normal gait. Normal sensory, motor, and reflex exams. PSYCH: Normal mood, normal affect. SKIN: Warm, Dry, normal turgor, no rashes or lesions noted. Course - Re-evaluation Re-evalutation: Patient appears well and in no respiratory distress. Chest x-ray does not show any evidence of pneumonia. Will treat with albuterol and prednisone with smoking cessation counseling. Given return precautions and she understands. - Vital Signs Vital signs: Temp Pulse Resp BP Pulse Ox 97.6 F 71 18 123/66 98 01/17/17 17:49 01/17/17 17:49 01/17/17 17:49 01/17/17 17:49 01/17/17 17:49 - Diagnostic Test Radiology reviewed: Image reviewed, Reports reviewed Radiology results interpreted by me: CXR: NAD Discharge - Discharge Clinical Impression: Bronchitis Condition: Good Disposition: HOME, SELF-CARE Additional Instructions: BRONCHITIS: You have acute bronchitis. This disease is an infection or inflammation of the air passageways in your lungs. Symptoms usually include cough, low grade fever, shortness of breath, and wheezing. The cough usually persists for a couple of weeks. Most cases of bronchitis get better without antibiotics. We prescribe antibiotics when we believe bacteria are damaging your airways, or if there's high risk the bronchitis will worsen into pneumonia. Increase your fluid intake. A cool mist humidifier may make your lungs more comfortable. An expectorant (cough medicine that loosens phlegm) can help. If you smoke, STOP!!! Recovery from bronchitis can be somewhat slow, but you should see improvement within a day or two. Repeated episodes of bronchitis may result in lung damage -- for example, chronic bronchitis, recurrent pneumonias, or emphysema. Call the doctor if you develop increasing fever, shortness of breath, chest pain, bloody sputum, or otherwise worsen. If you have not improved at all after several days, contact the physician. BRONCHITIS WITH BRONCHOSPASM (WHEEZING): You have bronchitis with bronchospasm (wheezing). Sometimes people develop wheezing with a chest cold. This occurs either because of an underlying tendency toward asthma or because the virus itself irritates the bronchial tubes. This irritation causes cough, shortness of breath, and wheezing. Emergency treatment of bronchospasm may include adrenaline shots or bronchodilator aerosol. You may feel lightheaded and have a rapid pulse for an hour or two. Rest and get plenty of fluids. At home, we'll treat you with a bronchodilator inhaler. Corticosteroids may be required for some patients. Until you recover, avoid chemical fumes, dusts, pollens, and exercising in very cold or dry air. If you smoke, stop now! Most cases of bronchitis get better without antibiotics. We prescribe antibiotics when we believe bacteria are damaging your airways, or if there's high risk the bronchitis will worsen into pneumonia. Increase your fluid intake. A cool mist humidifier may make your lungs more comfortable. An expectorant (cough medicine that loosens phlegm) can help. Repeated episodes of bronchitis and bronchospasm may result in lung damage -- for example, chronic bronchitis, recurrent pneumonias, or emphysema. If you develop a fever, increased wheezing, chest pain, or severe shortness of breath, you should contact the doctor immediately. DECONGESTANT MEDICATION: A decongestant medicine has been prescribed. Often this medicine is combined in the same tablet with an antihistamine or expectorant. This type of medicine is helpful in treating a bad cold or sinus condition, as well as in treatment of the nasal congestion of hay fever. It is not of much benefit for lung infections. Decongestant medicines are related to stimulants. They can cause an increase in blood pressure and heart rate. Persons with heart disease and high blood pressure should not take decongestants without discussing this with the physician. If you develop palpitations, chest pain, headache, or tremors, stop the medicine and consult your physician. COUGH-SUPPRESSANT & EXPECTORANT MEDICATION: You are to use a cough medication as needed for relief of symptoms. This medicine is a combination of an expectorant (to make the mucous thinner and more easily "coughed up") and a cough suppressant (to reduce the frequency of coughing). The cough-suppressant medicine is related to narcotics. You may experience mild nausea and sleepiness. Some patients who are very sensitive to narcotics may have stomach pain from this medicine. Taking the medicine with food reduces these side effects. Do not drive or work with machinery until you know how this medicine affects you. The expectorant should have no side effects. Iodine-containing expectorants (such as organidin) should not be taken by persons with active thyroid disease unless approved by your doctor. Call the doctor if you develop shortness of breath, hives, rash, itching, lightheadedness, or severe nausea and vomiting. INHALED BRONCHODILATORS: You have received a treatment of and/or prescription for an inhaled bronchodilator -- a medication which stimulates the airways in the lung to dilate. This improves the flow of air in asthma, bronchitis, and emphysema. These medicines have some similarity to adrenaline, and can cause similar side effects: shakiness, racing heart, and a sense of nervousness. These side effects decrease with time. Contact your doctor if these side effects are severe. Do not over-use the medicine. Too-frequent use of the inhaler may make it ineffective. Call your doctor if the inhaler is not controlling your symptoms at the prescribed doses. STEROID MEDICATION: You have been given an injection of or oral medicine of the cortisone/ steroid class. This medication is used to control inflammation or allergy. Kiko t is usually only given for a short period of time, until the acute process subsides. There are usually no side effects from short-term use of cortisone-like medications. Some persons feel an increased sense of well-being and are not sleepy at bedtime. Long-term use of cortisone medications is best avoided, unless required for a severe condition. If your condition does not remit, or relapses after the course of corticosteroid medication, you should consult your physician. USE OF ACETAMINOPHEN (Tylenol): Acetaminophen may be taken for pain relief or fever control. It's much safer than aspirin, offering a wider range of "safe" dosages. It is safe during . Some brand names are Tylenol, Panadol, Datril, Anacin 3, Tempra, and Liquiprin. Acetaminophen can be repeated every four hours. The following are maximum recommended dosages: >89 pounds or adults 650 mg to 900 mg Acetaminophen can be repeated every four hours. Maximum dose not to exceed 4000 mg a day. SMOKING: If you smoke, you should stop smoking. The tar and chemicals in cigarette smoke are harmful. Smoking has been shown to cause: emphysema chronic bronchitis lung cancer mouth and throat cancer stomach and pancreas cancer premature aging defects In addition, smoking increases ear and lung infections in children of smokers. FOLLOW-UP CARE: If you have been referred to a physician for follow-up care, call the physician s office for an appointment as you were instructed or within the next two days. If you experience worsening or a significant change in your symptoms, notify the physician immediately or return to the Emergency Department at any time for re-evaluation. Prescriptions: Albuterol Sulfate [Proair HFA Inhalation Aerosol 8.5 gm MDI] 2 puff IH Q4H PRN # 1 mdi PRN Reason: Prednisone [Deltasone 20 mg Tablet] 3 tab PO DAILY 5 Days Forms: Smoking Cessation Education Referrals: TYRESE BURDICK MD [ACTIVE STAFF] - Follow up as needed
== END 2017-01-17 19:33 | disposition home or self-care (01) ==
LOC: ER 17:44
DX: J40 Bronchitis, not specified as acute or chronic (principal); R05 Cough; R06.2 Wheezing; F17.200 Nicotine dependence, unspecified, uncomplicated
CPT/HCPCS: 71020; 81025; 99283

== ENCOUNTER 2017-04-04 16:14 | Emergency (ER) | payer MEDICAID ==
--- NOTE | 2017-04-04 17:53 | ER Document Report ---
ED Extremity Problem, Upper - General Chief Complaint: Shoulder Pain Stated Complaint: RIGHT SHOULDER PAIN Time Seen by Provider: 04/04/17 17:34 Notes: 32 yo female c/o right shoulder pain x 3 days. right hand dominant. no definite trauma, but has been moving boxes to move into new apartment. no radiculopathy or paresthesias to upper extremities. TRAVEL OUTSIDE OF THE [place] IN LAST 30 DAYS: No - HPI Patient complains to provider of: Pain Recent injury: No Quality of pain: Sharp Severity of pain: Moderate, Persistent Pain Level: 5 Arm and Shoulder (Right): 1 - pain Associated symptoms: None Exacerbated by: Movement Relieved by: Rest Similar symptoms previously: No - Related Data Allergies/Adverse Reactions: No Known Allergies Allergy (Verified 04/04/17 16:54) Past Medical History - General Information source: Patient - Social History Smoking Status: Current Every Day Smoker Frequency of alcohol use: None Drug Abuse: None Lives with: Family Family History: DM Patient has suicidal ideation: No Patient has homicidal ideation: No Neurological Medical History: Reports: Hx Migraine Renal/ Medical History: Denies: Hx Peritoneal Dialysis Past Surgical History: Reports: Hx Breast Surgery - Cyst - Immunizations Hx Diphtheria, Pertussis, Tetanus Vaccination: No - unknown Review of Systems - Review of Systems Constitutional: No symptoms reported EENT: No symptoms reported Cardiovascular: No symptoms reported Respiratory: No symptoms reported Gastrointestinal: No symptoms reported Genitourinary: No symptoms reported Female Genitourinary: No symptoms reported Musculoskeletal: No symptoms reported Skin: No symptoms reported Hematologic/Lymphatic: No symptoms reported Neurological/Psychological: No symptoms reported Physical Exam - Vital signs Interpretation: Normal - General General appearance: Appears well, Alert - HEENT Head: Normocephalic, Atraumatic Eyes: Normal Pupils: PERRL - Respiratory Respiratory status: No respiratory distress Chest status: Nontender Breath sounds: Normal Chest palpation: Normal - Cardiovascular Rhythm: Regular Heart sounds: Normal auscultation Murmur: No - Abdominal Inspection: Normal Distension: No distension Bowel sounds: Normal Tenderness: Nontender Organomegaly: No organomegaly - Back Back: Normal, Nontender - Extremities General upper extremity: Normal color, Normal temperature General lower extremity: Normal inspection, Nontender, Normal color, Normal ROM , Normal temperature, Normal weight bearing. No: Sharri's sign Shoulder: Tender - right anterior AC tender, + painful arc. - Neurological Neuro grossly intact: Yes Cognition: Normal Orientation: AAOx4 Colleen Coma Scale Eye Opening: Spontaneous [place] Coma Scale Verbal: Oriented [place] Coma Scale Motor: Obeys Commands [place] Coma Scale Total: 15 Speech: Normal Motor strength normal: LUE, RUE, LLE, RLE Sensory: Normal - Psychological Associated symptoms: Normal affect, Normal mood - Skin Skin Temperature: Warm Skin Moisture: Dry Skin Color: Normal Course - Re-evaluation Re-evalutation: 04/04/17 17:55 xray negative for fractures. results reviewed with patient. pt is stable for discharge Discharge - Discharge Clinical Impression: Right shoulder pain Qualifiers: Chronicity: acute Qualified Code(s): M25.511 - Pain in right shoulder Condition: Stable Disposition: HOME, SELF-CARE Instructions: Rotator Cuff Injury ([facility]), Steroid Medication, Ultram ([facility]), Ice Packs ([facility]) Additional Instructions: take medications as prescribed try to limit activity with right arm recommend orthopedic evaluation if pain persists more than 10 days Prescriptions: Prednisone [Deltasone 10 mg Tablet] 10 mg PO ASDIR PRN #21 tablet PRN Reason: Tramadol HCl [Ultram 50 mg Tablet] 50 mg PO ASDIR PRN #20 tablet PRN Reason:
--- NOTE | 2017-04-04 18:20 | RADIOLOGY REPORT (SQ) ---
EXAM DESCRIPTION: SHOULDER RIGHT 2 OR MORE VIEWS COMPLETED DATE/TIME: 04/04/2017 5:57 pm REASON FOR STUDY: pain COMPARISON: None. NUMBER OF VIEWS: Three views. TECHNIQUE: Internal rotation, external rotation, and Y view images acquired of the right shoulder. LIMITATIONS: None. FINDINGS: MINERALIZATION: Normal. BONES: No acute fracture or dislocation. No worrisome bone lesions. JOINTS: No dislocation. VISUALIZED LUNGS AND RIBS: No pneumothorax. No rib fracture. SOFT TISSUES: No radiopaque foreign body. OTHER: No other significant finding. IMPRESSION: NO RADIOGRAPHIC EVIDENCE OF ACUTE INJURY. TECHNICAL DOCUMENTATION: JOB ID: [id number] [employer]- All Rights Reserved
== END 2017-04-04 18:00 | disposition home or self-care (01) ==
LOC: ER 16:14
DX: M25.511 Pain in right shoulder (principal); F17.200 Nicotine dependence, unspecified, uncomplicated
CPT/HCPCS: 99283

== ENCOUNTER 2017-12-06 11:14 | Emergency (ER) | payer MEDICAID ==
[2017-12-06 11:25] VITALS: BP 115/74
--- NOTE | 2017-12-06 12:23 | RADIOLOGY REPORT (SQ) ---
EXAM DESCRIPTION: ANKLE RIGHT COMPLETE COMPLETED DATE/TIME: 12/06/2017 11:42 am REASON FOR STUDY: rolled it a week ago, pain COMPARISON: September 2016 NUMBER OF VIEWS: Three views. TECHNIQUE: AP, lateral, and oblique radiographic images acquired of the right ankle. LIMITATIONS: None. FINDINGS: MINERALIZATION: Normal. BONES: No acute fracture or dislocation. No worrisome bone lesions. JOINTS: No effusions. SOFT TISSUES: No soft tissue swelling. No foreign body. OTHER: There is some minimal Achilles tendon and plantar spur IMPRESSION: NEGATIVE STUDY OF THE RIGHT ANKLE. NO RADIOGRAPHIC EVIDENCE OF ACUTE INJURY. TECHNICAL DOCUMENTATION: JOB ID: [id number] [employer]- All Rights Reserved
--- NOTE | 2017-12-06 12:24 | RADIOLOGY REPORT (SQ) ---
EXAM DESCRIPTION: FOOT RIGHT COMPLETE COMPLETED DATE/TIME: 12/06/2017 11:42 am REASON FOR STUDY: rolled it a week ago, pain COMPARISON: Right ankle three views same date Right foot three views 06/11/2015 NUMBER OF VIEWS: Three views. TECHNIQUE: AP, lateral and oblique radiographic images acquired of the right foot. LIMITATIONS: None. FINDINGS: MINERALIZATION: Normal. BONES: No acute fracture or dislocation. No worrisome bone lesions. Small plantar and dorsal calcan eal spurs JOINTS: Hallux valgus deformity with very mild bony spurring at the 1st metatarsophalangeal joint SOFT TISSUES: No soft tissue swelling. No foreign body. OTHER: No other significant finding. IMPRESSION: NEGATIVE STUDY OF THE RIGHT FOOT. NO RADIOGRAPHIC EVIDENCE OF ACUTE INJURY. TECHNICAL DOCUMENTATION: JOB ID: [id number] [employer] All Rights Reserved
--- NOTE | 2017-12-06 13:08 | ER Document Report ---
ED Extremity Problem, Lower - General Chief Complaint: Foot Pain Stated Complaint: ANKLE INJURY Mode of Arrival: Ambulatory Information source: Patient TRAVEL OUTSIDE OF THE [place] IN LAST 30 DAYS: No - HPI Location: Ankle, Foot. No: Knee, Leg Occurred: Last week Where: Home Onset/Duration: Sudden, Persistent Quality of pain: Achy Severity: Moderate Associated symptoms: denies: Delta a pop, Hurts to breath, Rapid heart rate, Seizure, Short of breath Exacerbated by: Movement Relieved by: Rest - Related Data Allergies/Adverse Reactions: No Known Allergies Allergy (Verified 12/06/17 11:16) Past Medical History - Social History Smoking Status: Current Every Day Smoker Chew tobacco use (# tins/day): No Frequency of alcohol use: Occasional Drug Abuse: None Family History: DM Patient has suicidal ideation: No Patient has homicidal ideation: No Neurological Medical History: Reports: Hx Migraine Renal/ Medical History: Denies: Hx Peritoneal Dialysis Past Surgical History: Reports: Hx Breast Surgery - Cyst - Immunizations Hx Diphtheria, Pertussis, Tetanus Vaccination: No - unknown Review of Systems - Review of Systems Constitutional: No symptoms reported EENT: No symptoms reported Cardiovascular: No symptoms reported Respiratory: No symptoms reported Gastrointestinal: No symptoms reported Genitourinary: No symptoms reported Female Genitourinary: No symptoms reported Musculoskeletal: Joint pain, Joint swelling, Ankle swelling. denies: Back pain , Muscle pain, Muscle stiffness, Neck pain, Deformity, Leg swelling Skin: No symptoms reported Hematologic/Lymphatic: No symptoms reported Neurological/Psychological: No symptoms reported Physical Exam - Vital signs Vitals: Temp Pulse Resp BP Pulse Ox 98.5 F 72 16 115/74 98 12/06/17 11:24 12/06/17 11:24 12/06/17 11:24 12/06/17 11:24 12/06/17 11:24 - Notes Notes: GENERAL_APPEARANCE: well_nourished, alert, cooperative, no_acute_distress, no_ obvious_discomfort. VITALS: reviewed, see vital signs table. HEAD: no_swelling\tenderness on the head. EYES: conjunctiva_clear. NOSE: no_nasal_discharge. MOUTH: (-)decreased moisture. NECK: supple, no_neck_tenderness, (-)thyromegaly. BACK: no_back_tenderness. EXTREMITIES: Very mild swelling is noted at the right lateral malleolus, drawer signs of the right ankle are negative, there are no open wounds or strong dorsalis pedis posterior tibial pulses present. No crepitus is noted. SKIN: warm, dry, good_color, no_rash. MENTAL_STATUS: speech_clear, oriented_X_3, normal_affect, responds_ appropriately to questions. Course - Vital Signs Vital signs: Temp Pulse Resp BP Pulse Ox 98.5 F 72 16 115/74 98 12/06/17 11:24 12/06/17 11:24 12/06/17 11:24 12/06/17 11:24 12/06/17 11:24 - Transfer of Care Notes: Patient rolled her ankle one week ago. She states she has had persistent pain since radiated to her foot and upper leg. There is really just very mild swelling of the right mouth lateral malleolus. There is no calf tenderness. Homans sign is negative. Suspicion low for DVT majority discomfort is focused within the ankle at the lateral malleolus. There are strong pulses present brisk cap refill to nailbeds nothing to suggest vascular compromise. Since patient has had continued pain after rolling her ankle for a week will place her in an Aircast crutches refer her to orthopedics. Will prescribe her NSAIDs for home. 12/06/17 13:09 Discharge - Discharge Clinical Impression: High ankle sprain of right lower extremity Qualifiers: Encounter type: initial encounter Qualified Code(s): S93.431A - Sprain of tibiofibular ligament of right ankle, initial encounter Condition: Good Disposition: HOME, SELF-CARE Instructions: Sprained Ankle ([facility]) Additional Instructions: Please weight-bear as tolerated keep the splint on use crutches and use anti- inflammatories for discomfort and swelling. Please follow-up with orthopedics. Prescriptions: Diclofenac Sodium [Voltaren] 75 mg PO BID PRN #20 tablet.dr MAHER Reason: Pain Scale Of 5 Referrals: JANIE MORGAN MD [ACTIVE STAFF] - Follow up as needed
== END 2017-12-06 13:25 | disposition home or self-care (01) ==
LOC: ER 11:14
DX: S93.431A Sprain of tibiofibular ligament of right ankle, initial encounter (principal); X50.0XXA Overexertion from strenuous movement or load, initial encounter; Y93.41 Activity, dancing; Y92.009 Unspecified place in unspecified non-institutional (private) residence as the place of occurrence of the external cause; F17.200 Nicotine dependence, unspecified, uncomplicated
CPT/HCPCS: 73610; 73630; L4350

== ENCOUNTER 2019-03-19 22:59 | Emergency (ER) | payer MEDICAID ==
--- NOTE | 2019-03-20 01:48 | ER Document Report ---
ED General - General Chief Complaint: Wrist Pain Stated Complaint: LEFT WRIST INJURY Time Seen by Provider: 03/20/19 01:33 Primary Care Provider: TYRESE BURDICK MD [Primary Care Provider] - Follow up as needed Mode of Arrival: Ambulatory Information source: Patient Notes: 34-year-old female at 15 weeks presents with complaint of left wrist pain that started 2 days prior to arrival. Patient describes it as an aching pain located along her left thumb. She denies any injury, fever, chills, erythema. TRAVEL OUTSIDE OF THE [place] IN LAST 30 DAYS: No - HPI Onset: Other Onset/Duration: Gradual, Persistent Quality of pain: Achy Severity: Mild Associated symptoms: denies: Chills, Fever, Nausea, Vomiting, Shortness of breath Exacerbated by: Movement Relieved by: Remaining still Similar symptoms previously: No Recently seen / treated by doctor: No - Related Data Allergies/Adverse Reactions: No Known Allergies Allergy (Verified 12/06/17 11:16) Past Medical History - General Information source: Patient - Social History Smoking Status: Former Smoker Frequency of alcohol use: None Drug Abuse: None Lives with: Family Family History: DM Patient has suicidal ideation: No Patient has homicidal ideation: No Neurological Medical History: Reports: Hx Migraine Renal/ Medical History: Denies: Hx Peritoneal Dialysis Past Surgical History: Reports: Hx Breast Surgery - Cyst - Immunizations Hx Diphtheria, Pertussis, Tetanus Vaccination: No - unknown Review of Systems - Review of Systems Notes: REVIEW OF SYSTEMS: CONSTITUTIONAL : Denies fever, chills, or sweats. Denies recent illness. Denies weight loss, recent hospitalizations. EENT: Denies visual changes, eye pain. Denies sore throat, oral lesions, difficulty swallowing. CARDIOVASCULAR: Denies chest pain. Denies palpitations. Denies lower extremity edema. RESPIRATORY: Denies cough. Denies shortness of breath, wheezing. GASTROINTESTINAL: Denies abdominal pain or distention. Denies nausea, vomiting, or diarrhea. Denies blood in vomitus, stools, or per rectum. Denies black, tarry stools. Denies constipation. GENITOURINARY: Denies difficulty urinating, painful urination, frequency, blood in urine, or vaginal discharge. MUSCULOSKELETAL: Denies back or neck pain or stiffness. + joint pain or swelling. SKIN: Denies rash, lesions or sores. HEMATOLOGIC : Denies easy bruising or bleeding. LYMPHATIC: Denies swollen glands. NEUROLOGICAL: Denies confusion or altered mental status. Denies loss of consciousness. Denies dizziness or lightheadedness. Denies headache. Denies weakness or paralysis. Denies problems difficulty with ambulation, slurred speech. Denies sensory loss, numbness, or tingling. Denies seizures. PSYCHIATRIC: Denies anxiety or stress. Denies depression, suicidal ideation, or homicidal ideation. Denies visual or auditory hallucinations. Physical Exam - Vital signs Vitals: Temp Pulse Resp BP Pulse Ox 98.2 F 91 16 130/73 H 98 03/19/19 23:12 03/19/19 23:12 03/19/19 23:12 03/19/19 23:12 03/19/19 23:12 - Notes Notes: PHYSICAL EXAMINATION: GENERAL: Well-appearing, well-nourished and in no acute distress. HEAD: Atraumatic, normocephalic. EYES: Pupils equal round and reactive to light, extraocular movements intact, conjunctiva are normal. ENT: Nares patent, oropharynx clear without exudates. Moist mucous membranes. NECK: Normal range of motion, supple without lymphadenopathy LUNGS: Breath sounds clear to auscultation bilaterally and equal. No wheezes rales or rhonchi. HEART: Regular rate and rhythm without murmurs ABDOMEN: Soft, nontender, nondistended abdomen. No guarding, no rebound. No masses appreciated. Female : deferred Musculoskeletal: Normal range of motion, no pitting or edema. No cyanosis. Left wrist-positive Damon's, no erythema, obvious swelling or deformity. Cap refill less than 3 seconds. Sensation intact. NEUROLOGICAL: Cranial nerves grossly intact. Normal speech, normal gait. Normal sensory, motor exams PSYCH: Normal mood, normal affect. SKIN: Warm, Dry, normal turgor, no rashes or lesions noted. Course - Re-evaluation Re-evalutation: Temp Pulse Resp BP Pulse Ox 98.2 F 91 16 130/73 H 98 03/19/19 23:12 03/19/19 23:12 03/19/19 23:12 03/19/19 23:12 03/19/19 23:12 03/20/19 01:51 34-year-old female at 15 weeks presents with complaint of left wrist pain that started 2 days prior to arrival. Patient describes it as an aching pain located along her left thumb. She denies any injury, fever, chills, erythema. exam consistent with De Quervain's tendonitis. Patient was evaluated and treated as appropriate for the patient's presenting symptoms and complaint, with consideration of any critical or life threatening conditions that may be associated with their obtained history and exam as noted above. All results were discussed with patient. Patient provided the opportunity to ask questions, and express concerns. Patient was educated on treatments based on their presumed diagnosis as noted above. At this time we will discharge the patient with return precautions and follow-up recommendations. Verbal discharge instructions given a the bedside. Medication warnings reviewed. Patient is in agreement with this plan and has verbalized understanding of return precautions. After careful consideration I feel that that patient can be safely discharged from the emergency department, they were advised to followup with a primary care physician in 2-3 days. Dictation on this chart was performed using voice recognition software and may result in unintended grammatical, spelling, syntax or errors. - Vital Signs Vital signs: Temp Pulse Resp BP Pulse Ox 98.2 F 91 16 130/73 H 98 03/19/19 23:12 03/19/19 23:12 03/19/19 23:12 03/19/19 23:12 03/19/19 23:12 Discharge - Discharge Clinical Impression: Second trimester , Tendinitis Condition: Good Disposition: HOME, SELF-CARE Instructions: Wrist Sprain ([facility]) Additional Instructions: Your exam is consistent with swelling of the tendons of your thumb. This can be common in . Please use your thumb spica splint and follow-up with your primary care physician as needed. Follow up with your [id number] hours for further care or return to the ED IMMEDIATELY if symptoms worsen or you have any concerns. If you cannot afford to follow up with your primary care physician a list of low cost clinics have been provided at the end of your discharge papers as well. Most prescribed medications have multiple side effects. The safest thing to do is when filling your prescription speak to your pharmacist regarding possible interactions with your normal home medications and over the counter medications such as Ibuprofen, Tylenol, Benadryl. If you experience any symptoms that cause you discomfort or concern you should discontinue the medication immediately and return to the emergency room or call your primary care physician. Forms: Elevated Blood Pressure Referrals: TYRESE BURDICK MD [Primary Care Provider] - Follow up as needed
[2019-03-20 02:25] VITALS: BP 132/75
== END 2019-03-20 02:25 | disposition home or self-care (01) ==
LOC: ER 22:59
DX: O99.89 Other specified diseases and conditions complicating pregnancy, childbirth and the puerperium (principal); M77.9 Enthesopathy, unspecified; M25.532 Pain in left wrist; Z3A.15 15 weeks gestation of pregnancy; Z87.891 Personal history of nicotine dependence
CPT/HCPCS: 99283

== ENCOUNTER 2019-07-11 18:31 | Outpatient (CLI) | payer MEDICAID ==
--- NOTE | 2019-07-11 20:06 | Non Stress Test Report ---
Non Stress Test Datetime Report Generated by CPN: 07/11/2019 20:06 DEMOGRAPHIC EGA NST: 34.1 INDICATION Indication for Study: Ordered by Provider MONITORING Monitor Explained: Monitor Explained; Test Explained; Patient Verbalized Understanding Time on Monitor: 07/11/2019 18:43 Time off Monitor: 07/11/2019 19:53 NST Duration: 70 NST INTERVENTIONS NST Interventions: PO Hydration; Other NST Interventions Other: popsicle Physician Notified NST: Dr. Younger BABY A: [id number] BABY A Movement : Present Contraction Frequency : none FHR Baseline : 140 Accelerations : 15X15 Decelerations : None Variability : Moderate 6-25bpm NST Review: Meets Criteria for Reactive NST NST Review and Verified By : Abdulkadir Parisi RN NST Results: Reactive NST REPORT Report Trigger: Send Report
== END 2019-07-11 19:45 | disposition home or self-care (01) ==
LOC: LC 18:31
PROVIDERS: ATTEND Obstetrics & Gynecology
PROC: 4A1HXCZ Monitoring of Products of Conception, Cardiac Rate, External Approach (ICD-10-PCS; principal; 2019-07-11)
DX: O09.523 Supervision of elderly multigravida, third trimester (principal); Z3A.34 34 weeks gestation of pregnancy
CPT/HCPCS: 59025

== ENCOUNTER 2019-07-22 20:11 | Outpatient (CLI) | payer MEDICAID ==
--- NOTE | 2019-07-22 21:51 | Non Stress Test Report ---
Non Stress Test Datetime Report Generated by CPN: 07/22/2019 21:50 DEMOGRAPHIC EGA NST: 35.6 INDICATION Indication for Study: Ordered by Provider Indication for Study (NST) Other: < MONITORING Monitor Explained: Monitor Explained; Test Explained; Patient Verbalized Understanding Time on Monitor: 07/22/2019 20:24 Time off Monitor: 07/22/2019 21:31 NST Duration: 67 NST INTERVENTIONS NST Interventions: PO Hydration Physician Notified NST: Dr. Luis Antonio BABY A: [id number] BABY A Movement : Present Contraction Frequency : none FHR Baseline : 130 Accelerations : 15X15 Decelerations : None Variability : Moderate 6-25bpm NST Review: Meets Criteria for Reactive NST NST Review and Verified By : EMILIANO Collins Results: Reactive NST REPORT Report Trigger: Send Report
== END 2019-07-22 21:45 | disposition home or self-care (01) ==
LOC: LC 20:11
PROVIDERS: ATTEND Obstetrics & Gynecology
PROC: 4A1HXCZ Monitoring of Products of Conception, Cardiac Rate, External Approach (ICD-10-PCS; principal; 2019-07-22)
DX: O09.523 Supervision of elderly multigravida, third trimester (principal); Z3A.35 35 weeks gestation of pregnancy
CPT/HCPCS: 59025

== ENCOUNTER 2019-08-19 19:39 | Inpatient (IN) | payer MEDICAID ==
[2019-08-19] MEDS ORDERED: RINGERS SOLUTION,LACTATED 300 ML IV ONE (20:02)
[2019-08-19] MEDS ORDERED: MAG HYDROX/AL HYDROX/SIMETH SUSP 30 ML UDCUP PO PRN (20:02)
[2019-08-19] MEDS ORDERED: ACETAMINOPHEN 325 MG TABLET PO PRN (20:02)
[2019-08-19] MEDS ORDERED: ZOLPIDEM TARTRATE 5 MG TABLET PO PRN ×2 (20:02→22:00)
[2019-08-19 20:34] LABS: ABSOLUTE BASOPHILS # (AUTO) 0.1 10^3/uL (0.0-0.2); ABSOLUTE EOSINOPHILS # (AUTO) 0.1 10^3/uL (0.0-0.6); ABSOLUTE LYMPHOCYTES (AUTO) 2.1 10^3/uL (0.5-4.7); ABSOLUTE MONOCYTES (AUTO) 0.8 10^3/uL (0.1-1.4); ABSOLUTE NEUT (AUTO) 13.4 10^3/uL (1.7-8.2); BASOPHILS % (AUTO) 0.6 % (0-2); EOSINOPHILS % (AUTO) 0.8 % (0-6); HEMATOCRIT 31.9 % (36.0-47.0); HEMOGLOBIN 10.3 g/dL (12.0-15.5); MEAN CORPUSCULAR HEMOGLOBIN 24.9 pg (27.0-33.4); MEAN CORPUSCULAR HGB CONC 32.2 g/dL (32.0-36.0); MEAN CORPUSCULAR VOLUME 77 fl (80-97); MONOCYTES % (AUTO) 4.9 % (3-13); PLATELET COUNT 302 10^3/uL (150-450); RED BLOOD COUNT 4.12 10^6/uL (3.72-5.28); RED CELL DISTRIBUTION WIDTH 16.2 % (11.5-14.0); SEGMENTED NEUTROPHILS % (AUTO) 80.7 % (42-78); TOTAL CELLS COUNTED % (AUTO) 100 %; WHITE BLOOD COUNT 16.6 10^3/uL (4.0-10.5)
[2019-08-19] MEDS ORDERED: DINOPROSTONE 10 MG VAGINAL INSERT.SR PV ONE (21:00)
[2019-08-19] MEDS ORDERED: DINOPROSTONE 10 MG VAGINAL INSERT.SR ONE (21:02)
[2019-08-19 21:05] LABS: APPEARANCE,URINE SLIGHTLY-CLOUDY; BILIRUBIN,URINE NEGATIVE (NEGATIVE); COLOR,URINE YELLOW; GLUCOSE, URINE NEGATIVE (NEGATIVE); KETONES,URINE NEGATIVE (NEGATIVE); LEUKOCYTE ESTERASE,URINE TRACE (NEGATIVE); NITRITE,URINE NEGATIVE (NEGATIVE); PROTEIN,URINE NEGATIVE (NEGATIVE); URINE SPECIFIC GRAVITY 1.024; UROBILINOGEN,URINE NEGATIVE mg/dL (<2.0)
[2019-08-19 21:24] LABS: URINE AMPHETAMINES SCREEN NEGATIVE; URINE BARBITURATES SCREEN NEGATIVE; URINE BENZODIAZEPINES SCREEN NEGATIVE; URINE COCAINE SCREEN NEGATIVE; URINE MARIJUANA (THC) SCREEN NEGATIVE; URINE METHADONE SCREEN NEGATIVE; URINE PHENCYCLIDINE SCREEN NEGATIVE
--- NOTE | 2019-08-20 07:05 | Admission Physical ---
Datetime Report Generated by CPN: 08/20/2019 07:05 CURRENT ADMISSION Chief Complaint: Uterine Contractions Indication for Induction: Maternal Diabetes Admit Impression : Term, Intrauterine Admit Plan: Admit to Unit; Initiate Labor Induction Protocol ALLERGIES Medication Allergies: No Medication Allergies: No Known Allergies (08/19/2019) Latex: No Latex Allergies Environmental Allergies: dust OBSTETRICAL HISTORY EDC: 08/20/2019 00:00 : 3 Para: 2 Term: 2 Livin Gestational Diabetes: Yes Rh Sensitization: No Incompetent Cervix: No FRANCES: No Infertility: No ART Treatment: No Uterine Anomaly: No IUGR: No Hx Previous C/S: No Macrosomia: No Hx Loss/Stillborn: No PIH: No Hx : No Placenta Previa/Abruption: No Depression/PP Depression: No PTL/PROM: No Post Hemorrhage: No Current Procedures: Ultrasound; NST Obstetrical History Comments: G1- 2003, nvd at 41 weeks G2- 2010, nvd at 36.4 G3- Current SEE RECORDS Alcohol: No Marijuana : No Cocaine: No Other Illicit Drugs: No Cigarettes: Former Smoker. [id number] MEDICAL HISTORY Diabetes: No Diabetes Type: Gestational Diabetes Blood Transfusion: No Pulmonary Disease (Asthma, TB): No Breast Disease: No Hypertension: No [employer] Estate [employer] Surgery: No Heart Disease: No Hosp/Surgery: Yes Autoimmune Disorder: No Anesthetic Complications: No Kidney Disease: No Abnormal Pap Smear: Yes Neuro/Epilepsy: No Psychiatric Disorders: No Other Medical Diseases: No Hepatitis/Liver Disease: No Significant Family History: No Varicosities/Phlebitis: No Trauma/Violence : No Thyroid Dysfunction: No Medical History Comments: ADHD, Gallbladder removal, benign cysts, gestational diabetes INFECTIOUS HISTORY Gonorrhea: No Genital Herpes: No Chlamydia: Yes Tuberculosis: No Syphilis: No Hepatitis: No HIV/AIDS Exposure: No Rash or Viral Illness: No HPV: No Infectious History Comments: chlamydia- 2003 PHYSICAL EXAM General: Normal HEENT: Normal Neurologic: Normal Thyroid: Normal Heart: Normal Lungs: Normal Breast: Normal Back: Normal Abdomen: Normal Genitourinary Exam: Normal Extremities: Normal DTRs: Normal Pelvic Type: Adequate Vital Signs: Reviewed VAGINAL EXAM Dilatation: 0 Effacement: 0 Station: -3 MEMBRANES Pooling: Negative Membranes: Intact FETUS A EGA: 40.0 Monitoring: External US FHR- Baseline: 140 Variability: Moderate 6-25bpm Accelerations: 15X15 Decelerations: None FHR Category: Category I Estimated Weight (gm): 3900 Presentation: Vertex Admit Comment: A1DM on for induction. Cervidil started last night @ 2115. PLANS FOR LABOR AND DELIVERY Labor and Delivery: None Pain Management: Epidural Feeding Preference: Breast Benefit of Breast Feed Discussed: Yes Circumcision: N/A INFORMED CONSENT Signature: with User ID: [email or web address]
[2019-08-20] MEDS ORDERED: OXYTOCIN 10 UNIT/ML VIAL ONE (10:05)
[2019-08-20] MEDS ORDERED: MISOPROSTOL 0.2 MG TABLET ONE (10:05)
[2019-08-20] MEDS ORDERED: LIDOCAINE 1% INJ-PF (10 MG/ML) 30 ML SDV ONE (10:05)
[2019-08-20] MEDS ORDERED: OXYTOCIN/NORMAL SALINE 20 UNIT/1,000 ML RTUINJ ONE (10:06)
[2019-08-20] MEDS ORDERED: PENICILLIN G-K 5 MILLION UNIT VIAL ONE ×2 (12:46→20:15)
[2019-08-20] MEDS: RINGERS SOLUTION,LACTATED 1,000 ML IV PRN (14:35)
[2019-08-20] MEDS ORDERED: BUTALB/ACETAMINOPHEN/CAFFEINE 1 TAB EACH ONE (17:53)
[2019-08-20] MEDS ORDERED: MISOPROSTOL 0.1 MG TABLET ONE (20:15)
[2019-08-21] MEDS ORDERED: PENICILLIN G-K 5 MILLION UNIT VIAL ONE ×6 (00:47→23:08)
[2019-08-21] MEDS: PENICILLIN G POTASSIUM 2,500,000 UNIT in DEXTROSE 5%-WATER 50 ML IV SCH ×7 (00:53→22:00)
[2019-08-21] MEDS ORDERED: MISOPROSTOL 0.1 MG TABLET ONE ×2 (01:07→06:09)
[2019-08-21] MEDS: MISOPROSTOL 0.1 MG TABLET PV SCH ×2 (01:10→06:14)
[2019-08-21] MEDS ORDERED: BUTALB/ACETAMINOPHEN/CAFFEINE 1 TAB EACH ONE ×2 (04:39→15:00)
[2019-08-21] MEDS: BUTALB/ACETAMINOPHEN/CAFFEINE 1 TAB EACH PO PRN ×2 (04:44→15:01)
[2019-08-21] MEDS ORDERED: MISOPROSTOL 0.1 MG TABLET PV ONE (06:02)
[2019-08-21] MEDS ORDERED: NALBUPHINE HCL INJ 10 MG/1 ML AMPULE ONE (09:26)
[2019-08-21] MEDS ORDERED: NALBUPHINE HCL INJ 10 MG/1 ML AMPULE INJ ONE (09:46)
[2019-08-21] MEDS ORDERED: EPHEDRINE SULFATE INJ 50 MG/1 ML AMPULE ONE (13:43)
[2019-08-21] MEDS ORDERED: FENTANYL/BUPIVACAINE/NS/PF 0 MCG/0 ML RTUINJ EPI ONE (13:44)
[2019-08-21] MEDS ORDERED: BUPIVACAINE HCL 0.25 % INJ/PF (2.5 MG/1 ML) 30 ML VIAL ONE (13:44)
[2019-08-21] MEDS: RINGERS SOLUTION,LACTATED 1,000 ML IV PRN (14:59)
[2019-08-21] MEDS ORDERED: ONDANSETRON HCL INJ/PF 4 MG/2 ML SDV IV PRN (17:45)
[2019-08-21] MEDS ORDERED: ONDANSETRON HCL INJ/PF 4 MG/2 ML SDV ONE (17:46)
[2019-08-21] MEDS ORDERED: FENTANYL/BUPIVACAINE/NS/PF 300 MCG/150 ML RTUINJ EPI ONE (23:08)
[2019-08-22] MEDS ORDERED: ZOLPIDEM TARTRATE 5 MG TABLET PO PRN (00:07)
[2019-08-22] MEDS ORDERED: NA PHOS,M-B/NA PHOS,DI-BA (ADULT) 133 ML ENEMA PR PRN (00:07)
[2019-08-22] MEDS ORDERED: PROMETHAZINE HCL INJ 25 MG/1 ML VIAL IV PRN (00:07)
[2019-08-22] MEDS ORDERED: PROMETHAZINE HCL 25 MG SUPP.RECT PR PRN (00:07)
[2019-08-22] MEDS ORDERED: PROMETHAZINE HCL 25 MG TABLET PO PRN (00:07)
[2019-08-22] MEDS ORDERED: ACETAMINOPHEN WITH CODEINE #3 TABLET PO PRN (00:07)
[2019-08-22] MEDS ORDERED: ACETAMINOPHEN 325 MG TABLET PO PRN (00:07)
[2019-08-22] MEDS ORDERED: DIBUCAINE 1% OINTMENT 56 GM TP PRN (00:07)
[2019-08-22] MEDS ORDERED: PSEUDOEPHEDRINE HCL 30 MG TABLET PO PRN (00:07)
[2019-08-22] MEDS ORDERED: MAGNESIUM HYDROXIDE SUSP 30 ML UDCUP PO PRN (00:07)
[2019-08-22] MEDS ORDERED: BENZOCAINE/MENTHOL AEROSOL SPRAY 56 ML TOP PRN (00:07)
[2019-08-22] MEDS ORDERED: MEASLES,MUMPS&RUBELLA VACC/PF 0.5 ML VIAL SUBCUT PRN (00:07)
[2019-08-22] MEDS ORDERED: GLYCERIN/WITCH HAZEL LEAF 1 EACH MED..WIPE TP PRN (00:07)
[2019-08-22] MEDS ORDERED: OXYTOCIN/NORMAL SALINE 20 UNIT/1,000 ML RTUINJ IV PRN (00:07)
[2019-08-22] MEDS ORDERED: DIPHENHYDRAMINE HCL 25 MG CAPSULE PO PRN (00:07)
[2019-08-22] MEDS ORDERED: DIPH/PERTUSS(ACELL)/TETANUS VAC/PF 0.5 ML SYR (>=10YO) IM PRN (00:07)
--- NOTE | 2019-08-22 01:03 | Delivery Summary ---
Del Sum A-C Datetime Report Generated by CPN: 08/22/2019 01:02 DELIVERY PERSONNEL DELIVERY PERSONNEL: [id number] Delivery Doctor:: Tona Higgins MD Anesthesiologist:: Javon Winston MD Labor and Delivery Nurse:: Khloe Jackson RN MATERNAL INFORMATION Delivery Anesthesia: Epidural Medications After Delivery: Pitocin Drip 20 Units/1000ml NSS Estimated Blood Loss (ml): 100 Delivery QBL Comment: 100 Maternal Complications: Other Complication Details: GDM Provider Comments: VFI delivered in [place] presentation. No nuchal cord. Shoulders and body delivered without difficulty. cord doubly clamped and cut. infant to maternal abdomen for NRP. Placenta delivered intact spontaneously. FF at U. No perineal lacerations. Mother and baby stable upon provider leaving the room. LABOR SUMMARY EDC: 08/20/2019 00:00 No. Babies in Womb: 1 Attempted: No Labor Anesthesia: Epidural LABOR INFORMATION Reason for Induction: Maternal Diabetes Complete Dilatation: 08/22/2019 23:45 Cervical Ripening Agents: Gates Balloon Oxytocin: Induction Group B Beta Strep: Positive Antibiotics # of Doses: 5 Antibiotics Time of Last Dose: 1256 Name of Antibiotic Given: PENICILLIN G Steroids Given: None Reason Steroids Not Administered: Not Applicable MEMBRANES Membranes Rupture Method: Artificial Rupture of Membranes: 08/22/2019 14:50 Length of Rupture (hr): 9.08 Amniotic Fluid Color: Clear Amniotic Fluid Amount: Moderate STAGES OF LABOR Stage 2 hr: 0 Stage 2 min: 10 Stage 3 hr: 0 Stage 3 min: 4 VAGINAL DELIVERY Episiotomy: None Laceration #1: None Laceration Extension #1: N/A Laceration Repair: Not Applicable Sponge Count Correct: Yes Sharps Count Correct: Yes BABY A INFORMATION Delivery Date/Time: 08/22/2019 23:55 Method of Delivery: Vaginal Born in Route : No : N/A Forceps: N/A Vacuum Extraction: N/A Shoulder Dystocia : No PRESENTATION/POSITION BABY A Presentation: Cephalic Cephalic Presentation: Vertex Breech Presentation: N/A PLACENTA INFORMATION BABY A Placenta Delivery Time : 08/22/2019 23:59 Placenta Method of Delivery: Spontaneous Placenta Status: Delivered SCORES BABY A Heart Rate 1 min: >100 bpm Resp Effort 1 min: Good Cry Reflex Irritability 1 min: Cough or Sneeze or Pulls Away Muscle Tone 1 min: Active Motion Color 1 min: Blue/Pale Resuscitation Effort 1 min: Tactile Stimulation SCORE 1 MIN: 8 Heart Rate 5 min: >100 bpm Resp Effort 5 min: Good Cry Reflex Irritability 5 min: Cough or Sneeze or Pulls Away Muscle Tone 5 min: Active Motion Color 5 min: Body [place], Extremities Blue Resuscitation Effort 5 min: Tactile Stimulation SCORE 5 MIN: 9 INFORMATION BABY A Gestational Age at Delivery: 40.0 Gestational Status: Full Term- 39- 40.6 Weeks Infant Outcome : Liveborn Condition : Stable Infant Sex: Female CORD INFORMATION BABY A No. Cord Vessels: 3 Nuchal Cord : N/A Cord Blood Taken: Yes-For Storage (Mom's Blood type +) Suction: Mouth ASSESSMENT BABY A Infant Complications: None Physical Findings at Delivery: Within Normal Limits Respirations: Appears Normal Skin to Skin: Yes Skin to Skin Time (min): 30 Pre Press Operator/ALS Called : No Infant Care By: R Manuel RN Transferred To: Remains with Mother BABY B INFORMATION : N/A SIGNATURES Signature: with User ID: Ayah
[2019-08-22] MEDS: MONTELUKAST SODIUM 10 MG TABLET PO SCH ×2 (02:59→23:00)
[2019-08-22] MEDS: FLUTICASONE NASAL SPRAY 50 MCG/SPRY 120 SPRAY/16 GM NASL SCH ×2 (02:59→10:59)
[2019-08-22] MEDS: PENICILLIN G POTASSIUM 2,500,000 UNIT in DEXTROSE 5%-WATER 50 ML IV SCH (03:07)
[2019-08-22] MEDS: IBUPROFEN 800 MG TABLET PO SCH ×3 (05:15→22:54)
--- NOTE | 2019-08-22 09:05 | PDOC PROGRESS REPORT ---
Subjective-OB Progress Note for:: 08/22/19 Subjective: Doing well, c/o of feet tingling and hard to walk on feet due to edema, . family at BS Physical Exam (OB) Vital Signs: Temp Pulse Resp BP Pulse Ox 98.4 F 99 18 138/74 H 98 08/22/19 02:10 08/22/19 02:10 08/22/19 02:10 08/22/19 02:10 08/22/19 02:10 Intake & Output 08/21/19 08/22/19 08/23/19 06:59 06:59 06:59 Intake Total 1000 1250 Balance 1000 1250 - Lochia Lochia Amount: Small 10-25 ml Lochia Color: Rubra/Red - Abdomen Description: Soft, Round Hernia Present: No Fundal Description: Firm Fundal Height: u/u - u/2 Objective-Diagnostic Laboratory: 08/19/19 20:19 Assessment and Plan(PN) - Assessment and Plan (1) Vaginal delivery Is this a current diagnosis for this admission?: Yes (2) Carrier of group B Streptococcus Is this a current diagnosis for this admission?: Yes (3) Gestational diabetes mellitus (GDM) in childbirth, diet controlled Is this a current diagnosis for this admission?: Yes - Time Spent with Patient Time with patient: Less than 15 minutes Medications reviewed and adjusted accordingly: Yes - Disposition Within: within 24 hours
[2019-08-22] MEDS ORDERED: FUROSEMIDE 20 MG TABLET PO ONE (10:00)
[2019-08-22] MEDS: PRENATAL VITAMIN W DHA CAPSULE PO SCH (10:54)
[2019-08-22] MEDS: FERROUS SULFATE 325 MG TABLET PO SCH ×2 (10:55→18:00)
[2019-08-22] MEDS: DOCUSATE SODIUM 100 MG CAPSULE PO SCH ×2 (10:55→18:00)
[2019-08-22] MEDS: FAMOTIDINE 20 MG TABLET PO SCH ×2 (10:55→23:00)
[2019-08-22] MEDS: SENNOSIDES/DOCUSATE 8.6-50 MG 1 EACH TABLET PO SCH (10:55)
[2019-08-22] MEDS: ACETAMINOPHEN WITH CODEINE #3 TABLET PO PRN ×2 (10:59→20:26)
[2019-08-22 14:37] LABS: HSV 1 IGM AB <1:10 titer (<1:10)
[2019-08-22 16:08] LABS: HSV 2 IGM AB <1:10 titer (<1:10)
[2019-08-23] MEDS: FLUTICASONE NASAL SPRAY 50 MCG/SPRY 120 SPRAY/16 GM NASL SCH ×2 (04:36→10:34)
[2019-08-23] MEDS: IBUPROFEN 800 MG TABLET PO SCH (05:39)
[2019-08-23 06:48] LABS: HEMATOCRIT 29.4 % (36.0-47.0); HEMOGLOBIN 9.6 g/dL (12.0-15.5); MEAN CORPUSCULAR HEMOGLOBIN 25.6 pg (27.0-33.4); MEAN CORPUSCULAR HGB CONC 32.8 g/dL (32.0-36.0); MEAN CORPUSCULAR VOLUME 78 fl (80-97); PLATELET COUNT 228 10^3/uL (150-450); RED BLOOD COUNT 3.77 10^6/uL (3.72-5.28); RED CELL DISTRIBUTION WIDTH 17.1 % (11.5-14.0); WHITE BLOOD COUNT 9.6 10^3/uL (4.0-10.5)
--- NOTE | 2019-08-23 09:34 | PDOC PROGRESS REPORT ---
Subjective-OB Progress Note for:: 08/23/19 Subjective: Doing better today, nadja worked well, ambulating to BR, c/o of bottom of feet being numb Physical Exam (OB) Vital Signs: Temp Pulse Resp BP Pulse Ox 97.9 F 80 18 135/76 H 99 08/23/19 08:08 08/23/19 08:08 08/23/19 08:08 08/23/19 08:08 08/23/19 08:08 Intake & Output 08/22/19 08/23/19 08/24/19 06:59 06:59 06:59 Intake Total 1250 1999 Balance 1250 1999 - PIH/Pre-Eclampsia Clonus: Negative Headache: Absent Epigastric Pain: No Visual Changes: No - Lochia Lochia Amount: Small 10-25 ml Lochia Color: Rubra/Red - Abdomen Description: Soft, Round Hernia Present: No Fundal Description: Firm, Midline Fundal Height: u/u - u/2 Objective-Diagnostic Laboratory: 08/23/19 06:24 08/23/19 06:24 WBC 9.6 RBC 3.77 Hgb 9.6 L Hct 29.4 L MCV 78 L MCH 25.6 L MCHC 32.8 RDW 17.1 H Plt Count 228 Assessment and Plan(PN) - Assessment and Plan (1) Vaginal delivery Is this a current diagnosis for this admission?: Yes (2) Carrier of group B Streptococcus Is this a current diagnosis for this admission?: Yes (3) Gestational diabetes mellitus (GDM) in childbirth, diet controlled Is this a current diagnosis for this admission?: Yes - Time Spent with Patient Time with patient: Less than 15 minutes Medications reviewed and adjusted accordingly: Yes - Disposition Anticipated Discharge: Home Within: within 24 hours - [facility] 1 week
--- NOTE | 2019-08-23 09:39 | PDOC DISCHARGE SUMMARY ---
Impression - Admit/DC Date/PCP Admission Date/Primary Care Provider: 08/19/19 19:39 TYRESE BURDICK MD Discharge Date: 08/23/19 - Discharge Diagnosis (1) Vaginal delivery Is this a current diagnosis for this admission?: Yes (2) Carrier of group B Streptococcus Is this a current diagnosis for this admission?: Yes (3) Gestational diabetes mellitus (GDM) in childbirth, diet controlled Is this a current diagnosis for this admission?: Yes - Additional Information Resuscitation Status: Full Code Discharge Diet: As Tolerated, Regular Discharge Activity: Activity As Tolerated, No Lifting Over 10 Pounds, No Lifting/Push/Pulling, Pelvic Rest [facility]: [facility] [Provider Group] ([facility] 1 week) Home Medications: 95/Iron Fum/Folic/Dha [ + Dha Combo Pack] 1 tab PO DAILY 07/22/19 Fluticasone Propionate [Flonase Nasal [place] 50 Mcg/[place] 16 gm] 2 sprays NASL Q12 08/19/19 Montelukast Sodium [Singulair 10 mg Tablet] 10 mg PO QHS 08/19/19 Omeprazole 20 mg PO DAILY 08/19/19 HPI Gestational Age: 40 Reason(s) for Admission: Induction of Labor, Gestional Diabetes, Advanced Maternal Age, Group B Strep Positive Procedures: NST, Ultrasound Intrapartum Procedure(s): Spontaneous Vaginal Delivery Hospital Course Hospital Course: routine Results Laboratory Results: WBC 9.6 10^3/uL (4.0-10.5) 08/23/19 06:24 RBC 3.77 10^6/uL (3.72-5.28) 08/23/19 06:24 Hgb 9.6 g/dL (12.0-15.5) L 08/23/19 06:24 Hct 29.4 % (36.0-47.0) L 08/23/19 06:24 MCV 78 fl (80-97) L 08/23/19 06:24 MCH 25.6 pg (27.0-33.4) L 08/23/19 06:24 MCHC 32.8 g/dL (32.0-36.0) 08/23/19 06:24 RDW 17.1 % (11.5-14.0) H 08/23/19 06:24 Plt Count 228 10^3/uL (150-450) 08/23/19 06:24 Lymph % (Auto) 13.0 % (13-45) 08/19/19 20: Graves % (Auto) 4.9 % (3-13) 08/19/19 20: Eos % (Auto) 0.8 % (0-6) 08/19/19 20: Baso % (Auto) 0.6 % (0-2) 08/19/19 20: Absolute Neuts (auto) 13.4 10^3/uL (1.7-8.2) H 08/19/19 20: Absolute Lymphs (auto) 2.1 10^3/uL (0.5-4.7) 08/19/19 20: Absolute Monos (auto) 0.8 10^3/uL (0.1-1.4) 08/19/19 20: Absolute Eos (auto) 0.1 10^3/uL (0.0-0.6) 08/19/19 20: Absolute Basos (auto) 0.1 10^3/uL (0.0-0.2) 08/19/19 20: Seg Neutrophils % 80.7 % (42-78) H 08/19/19 20:19 Urine Color YELLOW 08/19/19 20:00 Urine Appearance SLIGHTLY-CLOUDY 08/19/19 20:00 Urine pH 6.0 (5.0-9.0) 08/19/19 20:00 Ur Specific [place] 1.024 08/19/19 20:00 Urine Protein NEGATIVE mg/dL (NEGATIVE) 08/19/19 20:00 Urine Glucose (UA) NEGATIVE mg/dL (NEGATIVE) 08/19/19 20:00 Urine Ketones NEGATIVE mg/dL (NEGATIVE) 08/19/19 20:00 Urine Blood NEGATIVE (NEGATIVE) 08/19/19 20:00 Urine Nitrite NEGATIVE (NEGATIVE) 08/19/19 20:00 Urine Bilirubin NEGATIVE (NEGATIVE) 08/19/19 20:00 Urine Urobilinogen NEGATIVE mg/dL (<2.0) 08/19/19 20:00 Ur Leukocyte Esterase TRACE (NEGATIVE) H 08/19/19 20:00 Urine Ascorbic Acid NEGATIVE (NEGATIVE) 08/19/19 20:00 Urine Opiates Screen NEGATIVE 08/19/19 20:00 Urine Methadone Screen NEGATIVE 08/19/19 20:00 Ur Barbiturates Screen NEGATIVE 08/19/19 20:00 Ur Phencyclidine Scrn NEGATIVE 08/19/19 20:00 Ur Amphetamines Screen NEGATIVE 08/19/19 20:00 U Benzodiazepines Scrn NEGATIVE 08/19/19 20:00 Urine Cocaine Screen NEGATIVE 08/19/19 20:00 U Marijuana (THC) Screen NEGATIVE 08/19/19 20:00 RPR NONREACTIVE (NONREACTIVE) 08/19/19 20:19 HSV I IgG Ab Cancelled 08/21/19 10:19 HSV I IgM Ab (IFA) <1:10 titer (<1:10) 08/21/19 10:19 HSV II IgM Ab (IFA) <1:10 titer (<1:10) 08/21/19 10:19 Blood Type A POSITIVE 08/19/19 20:19 Antibody Screen NEGATIVE 08/19/19 20:19 Plan Health Concerns: routine Plan of Treatment: increase water, avoid salt, ambulate Goals: decrease in edema Time Spent: Less than 30 Minutes
[2019-08-23] MEDS ORDERED: FUROSEMIDE 40 MG TABLET PO SCH (10:00)
[2019-08-23] MEDS: DOCUSATE SODIUM 100 MG CAPSULE PO SCH (10:35)
[2019-08-23] MEDS: PRENATAL VITAMIN W DHA CAPSULE PO SCH (10:35)
[2019-08-23] MEDS: SENNOSIDES/DOCUSATE 8.6-50 MG 1 EACH TABLET PO SCH (10:35)
[2019-08-23] MEDS: FAMOTIDINE 20 MG TABLET PO SCH (10:35)
[2019-08-23] MEDS: FERROUS SULFATE 325 MG TABLET PO SCH (10:35)
[2019-08-23 11:08] VITALS: BP 138/74
== END 2019-08-23 14:41 | disposition home or self-care (01) | DRG 807 ==
LOC: LR 19:39 → 2S 08-22 02:08
PROVIDERS: ADMIT Obstetrics & Gynecology; ATTEND Obstetrics & Gynecology
PROC: 10E0XZZ Delivery of Products of Conception, External Approach (ICD-10-PCS; principal; 2019-08-22)
PROC: 10907ZC Drainage of Amniotic Fluid, Therapeutic from Products of Conception, Via Natural or Artificial Opening (ICD-10-PCS; 2019-08-22)
DX: O24.420 Gestational diabetes mellitus in childbirth, diet controlled (principal); Z37.0 Single live birth; O99.824 Streptococcus B carrier state complicating childbirth; Z3A.40 40 weeks gestation of pregnancy; Z87.891 Personal history of nicotine dependence; Z86.19 Personal history of other infectious and parasitic diseases
CPT/HCPCS: 36415; 80307; 81005; 85025; 85027; 86592; 86695; 86696; 86850; 86900; 86901; 94760; C1726; J2300; J2405; J2540; J2590; J3010; J3490

== ENCOUNTER 2020-10-21 08:22 | Emergency (ER) | payer MEDICAID ==
[2020-10-21 08:28] VITALS: BP 153/88
[2020-10-21] MEDS ORDERED: TETRACAINE HCL 0.5% OPH SOLN 4 ML OS ONE (11:40)
[2020-10-21 12:28] LABS: ABSOLUTE BASOPHILS # (AUTO) 0.1 10^3/uL (0.0-0.2); ABSOLUTE EOSINOPHILS # (AUTO) 0.1 10^3/uL (0.0-0.6); ABSOLUTE LYMPHOCYTES (AUTO) 2.3 10^3/uL (0.5-4.7); ABSOLUTE MONOCYTES (AUTO) 0.6 10^3/uL (0.1-1.4); ABSOLUTE NEUT (AUTO) 8.1 10^3/uL (1.7-8.2); BASOPHILS % (AUTO) 0.6 % (0-2); EOSINOPHILS % (AUTO) 1.3 % (0-6); HEMATOCRIT 36.1 % (36.0-47.0); HEMOGLOBIN 11.8 g/dL (12.0-15.5); MEAN CORPUSCULAR HEMOGLOBIN 23.9 pg (27.0-33.4); MEAN CORPUSCULAR HGB CONC 32.8 g/dL (32.0-36.0); MEAN CORPUSCULAR VOLUME 73 fl (80-97); PLATELET COUNT 326 10^3/uL (150-450); RED BLOOD COUNT 4.95 10^6/uL (3.72-5.28); SEGMENTED NEUTROPHILS % (AUTO) 72.1 % (42-78); TOTAL CELLS COUNTED % (AUTO) 100 %; WHITE BLOOD COUNT 11.2 10^3/uL (4.0-10.5)
--- NOTE | 2020-10-21 12:33 | RADIOLOGY REPORT (SQ) ---
EXAM DESCRIPTION: CT ORBIT/SELLA WITHOUT IMAGES COMPLETED DATE/TIME: 10/21/2020 12:17 pm REASON FOR STUDY: left eye swelling COMPARISON: 10/23/2016 TECHNIQUE: Noncontrasted images through the orbits windowed for bone and soft tissue. Additional co clayton and sagittal reconstructed images reviewed. All images stored on PACS. All CT scanners at this facility use dose modulation, iterative reconstruction, and/or weight based d osing when appropriate to reduce radiation dose to as low as reasonably achievable (ALARA). [facility]: Dose Right [facility]: CareDose [facility]: Dose Right [facility]: Teradose 4D [facility]: Smart Bandwagon RADIATION DOSE: CT Rad equipment meets quality standard of care and radiation dose reduction techniq ues were employed. CTDIvol: 30.4 mGy. DLP: 389 mGy-cm. mGy. LIMITATIONS: None. FINDINGS: FACIAL BONES: No fracture or bone lesion. ORBITS: Intact. No fracture. Symmetric intact globes and retroorbital soft tissues. PARANASAL SINUSES: Clear. No significant mucosal thickening, mass or fluid. No nasal polyps. Maxilla ry sinus outlets are patent. SOFT TISSUES: No mass or edema. INFERIOR BRAIN: Limited view. No acute findings. OTHER: No other significant finding. IMPRESSION: No acute findings. Specifically, normal noncontrast CT appearance of the left orbit. TECHNICAL DOCUMENTATION: JOB ID: [id number] Quality ID # [id number]: Final reports with documentation of one or more dose reduction techniques (e.g., Au tomated exposure control, adjustment of the mA and/or kV according to patient size, use of iterative reconstruction technique) 2010 [employer]- All Rights Reserved Reading location - IP/workstation name: [email or web address]
[2020-10-21 12:47] LABS: ALBUMIN 3.8 g/dL (3.5-5.0); ALKALINE PHOSPHATASE 91 U/L (38-126); ANION GAP 9 (5-19); ASPARTATE AMINO TRANSFERASE 32 U/L (14-36); BILIRUBIN,DIRECT 0.2 mg/dL (0.0-0.4); BILIRUBIN,TOTAL 0.4 mg/dL (0.2-1.3); BLOOD UREA NITROGEN 9 mg/dL (7-20); CARBON DIOXIDE 27 mmol/L (22-30); CHLORIDE 107 mmol/L (98-107); GLUCOSE 87 mg/dL (75-110); POTASSIUM 4.5 mmol/L (3.6-5.0); TOTAL PROTEIN 7.2 g/dL (6.3-8.2)
--- NOTE | 2020-10-21 12:48 | ER Document Report ---
ED Eye Complaint - General Stated Complaint: EYE PAIN Time Seen by Provider: 10/21/20 11:33 Primary Care Provider: TYRESE BURDICK MD [Primary Care Provider] - Follow up as needed Notes: CHIEF COMPLAINT: Left eye swelling and pain HPI: 35-year-old female presenting for left eye swelling and pain over the last 3 to 4 days. Went to her PCP 2 days ago states they did an eye chart exam and put her on drops for the left eye telling her she had an eye infection. Still with discomfort today with movement of the eye so [facility] No vision loss or change. Reports pain around the left rastafari and frontal region of the forehead similar to prior ocular migraines that she has had. No rash. No fever. No trauma. No difficulty with light ROS: See HPI - all other systems were reviewed and are otherwise negative Constitutional: no fever Eyes: no drainage, no blurred vision. Left eye pain ENT: no runny nose, no sore throat Integumentary: no rash Allergy: no hives Musculoskeletal: no extremity pain or swelling Neurological: no numbness/tingling, no weakness MEDICATIONS: I agree with the patient medications as charted by the RN. ALLERGIES: I agree with the allergies as charted by the RN. PAST MEDICAL HISTORY/PAST SURGICAL HISTORY: Reviewed and agree as charted by RN. SOCIAL HISTORY: Reviewed and agree as charted by RN. FAMILY HISTORY: No significant familial comorbid conditions directly related to patient complaint EXAM: Reviewed vital signs as charted by RN. CONSTITUTIONAL: Alert and oriented and responds appropriately to questions. Well-appearing; well-nourished HEAD: Normocephalic; atraumatic EYES: PERRL; Conjunctivae very mildly injected left eye, sclerae non-icteric. No photophobia. Funduscopic exam does not reveal evidence of disc edema or hemorrhage. No visible corneal abrasion on [place] exam with fluorescein stain. Negative Julisa sign. There is very slight soft tissue swelling around the left eye in the periorbital region above and below the eye. No erythema. No induration. No visible rash. No dendrites. Intraocular pressure left eye at 19. ENT: normal nose; no rhinorrhea; moist mucous membranes; pharynx without lesions noted, no uvula edema or deviation, no tonsillar hypertrophy, phonation normal NECK: Supple without meningismus; non-tender; no cervical lymphadenopathy, no masses CARD: symmetric distal pulses RESP: Normal chest excursion without splinting or tachypnea ABD/GI: non-distended BACK: The back appears normal EXT: Normal ROM in all joints; no cyanosis, no effusions, no edema SKIN: Normal color for age and race; warm; dry; good turgor NEURO: Moves all extremities equally; Motor and sensory function intact PSYCH: The patient's mood and manner are appropriate. Grooming and personal hygiene are appropriate. MDM: 35-year-old female with left eye pain. Intraocular pressure is normal, unlikely to be glaucoma. There is no visible rash suggesting shingles. Patient has not had nasal congestion suggesting sinusitis. Patient may have a mild periorbital cellulitis although there is no overlying erythema. She may just have a simple conjunctivitis. She may have iritis. She is supposedly on a steroid drop with antibiotic in it but does not know the name of it. Does not have it with her. Have ordered CT imaging to evaluate the orbit which was normal. Awaiting CBC CMP and sed rate. Patient is very young for arteritis. The patient was evaluated during the global COVID-19 pandemic and that diagnosis was suspected/considered upon their initial presentation. Their evaluation, treatment and testing was consistent with current guidelines for patients who present with complaints or symptoms that may be related to COVID-19 TRAVEL OUTSIDE OF THE [place] IN LAST 30 DAYS: No - Related Data Allergies/Adverse Reactions: No Known Allergies Allergy (Verified 08/19/19 19:53) Past Medical History - Social History Smoking Status: Unknown if Ever Smoked Family History: DM Neurological Medical History: Reports: Hx Migraine Renal/ Medical History: Denies: Hx Peritoneal Dialysis Past Surgical History: Reports: Hx Breast Surgery - Cyst - Immunizations Hx Diphtheria, Pertussis, Tetanus Vaccination: No - unknown Physical Exam - Vital signs Vitals: Temp Pulse Resp BP Pulse Ox 98.1 F 73 16 153/88 H 98 10/21/20 08:24 10/21/20 08:24 10/21/20 08:24 10/21/20 08:24 10/21/20 08:24 Course - Re-evaluation Re-evalutation: 10/21/20 13:14 Sed rate is 29 but not above the range where we would consider arteritis. Patient in no discomfort in the room at this time the swelling around the eye se ems to have gone down slightly although I still feel that we should treat the patient for periorbital cellulitis. Her discomfort did improve significantly with tetracaine leading me to think that this is not a deep intraocular issue. I will refer to ophthalmology patient is aware of this and in agreement with this plan - Vital Signs Vital signs: Temp Pulse Resp BP Pulse Ox 98.1 F 73 16 153/88 H 98 10/21/20 08:24 10/21/20 08:24 10/21/20 08:24 10/21/20 08:24 10/21/20 08:24 - Laboratory Results Result Diagrams: 10/21/20 12:05 10/21/20 12:05 Laboratory Results Interpreted: 10/21/20 10/21/20 12:05 12:05 WBC 11.2 H Hgb 11.8 L MCV 73 L MCH 23.9 L RDW 15.0 H ESR 29 H ALT 36 H Critical Laboratory Results Reviewed: No Critical Results - Radiology Results Critical Radiology Results Reviewed: No Critical Results Discharge - Discharge Clinical Impression: Left eye pain, Periorbital cellulitis of left eye Condition: Stable Disposition: HOME, SELF-CARE Additional Instructions: Follow-up with ophthalmology for further evaluation and treatment call for appointment. Take the Augmentin as prescribed. Warm compresses to the left eye 2-3 times daily to help with swelling. Return for worsening symptoms Prescriptions: Amoxicillin/Potassium Clav [Augmentin 875-125 Tablet] 1 tab PO NOW #14 tablet Referrals: TYRESE BURDICK MD [Primary Care Provider] - Follow up as needed MAHESH BERG MD [ACTIVE STAFF] - Follow up as needed
[2020-10-21 13:07] LABS: ERYTHROCYTE SEDIMENTATION RATE 29 mm/hr (0-20)
== END 2020-10-21 13:21 | disposition home or self-care (01) ==
LOC: ER 08:22
DX: L03.213 Periorbital cellulitis (principal); H57.12 Ocular pain, left eye
CPT/HCPCS: 99284; 36415; 85025; 85652; 80053; 70480; J3490